=== PATIENT | male | born 1975 | race Caucasian/White ===

== ENCOUNTER 2016-06-15 21:29 | Emergency (ER) | payer MEDICARE, MEDICAID ==
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
[2016-06-16] MEDS ORDERED: IBUPROFEN 600 MG TABLET PO ONE (01:10)
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
[2016-06-16 01:32] VITALS: BP 130/85
== END 2016-06-16 01:28 | disposition home or self-care (01) ==
LOC: ER 21:29
DX: S76.911A Strain of unspecified muscles, fascia and tendons at thigh level, right thigh, initial encounter (principal); M79.651 Pain in right thigh; M79.604 Pain in right leg; F17.200 Nicotine dependence, unspecified, uncomplicated; X58.XXXA Exposure to other specified factors, initial encounter
CPT/HCPCS: 99283; 73562; A9270

== ENCOUNTER 2017-07-29 12:33 | Emergency (ER) | payer MEDICARE, MEDICAID ==
[2017-07-29 12:44] VITALS: BP 135/87
--- NOTE | 2017-07-29 13:15 | ER Document Report ---
ED Extremity Problem, Upper - General Chief Complaint: Shoulder Pain Stated Complaint: LEFT SHOULDER PAIN Time Seen by Provider: 07/29/17 13:04 Mode of Arrival: Ambulatory Information source: Patient TRAVEL OUTSIDE OF THE [place] IN LAST 30 DAYS: No - HPI Patient complains to provider of: Pain Notes: Patient is here with complaints of pain in the left lateral neck, trapezius area. States that the pain started this morning when he was walking to the store and is progressively gotten worse as the day has progressed. He denies any trauma or fall. He denies any numbness, tingling, weakness. States that the pain is worse when he turns his head to the right or left or when he moves his left arm. He denies any chest pain or shortness of breath. No diaphoresis. No nausea, vomiting, diarrhea. No rash. No abdominal pain. No headache or blurred vision. He denies any known cardiac disease. No other complaints at this time. He took some Tylenol arthritis without relief of pain. - Related Data Allergies/Adverse Reactions: aspirin Adverse Reaction (Mild, Verified 07/29/17 13:04) Past Medical History - Social History Smoking Status: Current Every Day Smoker Chew tobacco use (# tins/day): No Frequency of alcohol use: None Drug Abuse: None Family History: Reviewed & Not Pertinent Patient has suicidal ideation: No Patient has homicidal ideation: No - Past Medical History Cardiac Medical History: Reports: Hx Hypercholesterolemia Renal/ Medical History: Denies: Hx Peritoneal Dialysis Psychiatric Medical History: Reports: Hx Bipolar Disorder - Immunizations Hx Diphtheria, Pertussis, Tetanus Vaccination: Yes Review of Systems - Review of Systems -: Yes All other systems reviewed and negative Physical Exam - Vital signs Vitals: Temp Pulse BP Pulse Ox 97.4 F 97 135/87 H 98 07/29/17 12:42 07/29/17 12:42 07/29/17 12:42 07/29/17 12:42 - Notes Notes: GENERAL: alert, cooperative, nontoxic, no distress. HEAD: normocephalic, atraumatic EYES: conjunctiva pink without discharge, no external redness or swelling. EARS: no external swelling, no external redness NOSE: atraumatic, no external swelling MOUTH/THROAT: mucous membranes moist and pink NECK: soft, supple, full range of motion, no meningismus. CHEST: no distress, lungs clear and equal throughout. No wheezing, rales, rhonchi. CARDIAC: regular rate and rhythm, no murmur, normal capillary refill, normal pulses. BACK: full range of motion, no CVA tenderness. EXTREMITIES: full range of motion of all extremities. No redness, no swelling. Mild tenderness and muscle spasm to the left trapezius muscle. Full range of motion and strength of the left upper arm. Normal pulse and sensation distally. NEURO: alert and oriented 3, no focal deficits, full range of motion of all extremities. PYSCH: appropriate mood, affect. Patient is cooperative. SKIN: pink, warm, dry, no rash. Course - Re-evaluation Re-evalutation: 07/29/17 13:12 Patient is nontoxic appearing with stable vitals. Is here with complaints of left posterior shoulder pain that started this morning. Pain is worse with moving his head as well as moving his arm as well as with palpation of the left trapezius where he is noted to have some muscle spasm. Not having any chest pain or shortness of breath associated with this. He has a normal neurovascular exam. There was no trauma or injury, therefore x-rays would be of no significant benefit at this time. This point the patient seems to have some muscle spasm as the source of his pain. At this point he can be discharged home with a prescription for NSAIDs and a muscle relaxer. He is instructed to follow-up with his doctor if not better in the next week, sooner for worsening pain, fever, numbness, tingling, weakness, chest pain or shortness of breath, or for any further concerns. The patient is noted to have elevated blood pressure during today's emergency department visit. The patient was informed of this finding. The patient was instructed that this may be related to pre-hypertension and requires further evaluation with a primary care provider. The patient has no hypertensive symptoms at this time. The patient's emergency department workup and current diagnosis were explained to the patient and or family. Follow-up instructions were provided. Medications if prescribed were discussed. Instructions for when to return to the emergency department including specific worrisome symptoms were discussed with the patient and/or family. - Vital Signs Vital signs: Temp Pulse Resp BP Pulse Ox 97.4 F 97 135/87 H 98 07/29/17 12:42 07/29/17 12:42 07/29/17 12:42 07/29/17 12:42 Discharge - Discharge Clinical Impression: Strain of left trapezius muscle Qualifiers: Encounter type: initial encounter Qualified Code(s): S46.812A - Strain of other muscles, fascia and tendons at shoulder and upper arm level, left arm, initial encounter Condition: Stable Disposition: HOME, SELF-CARE Instructions: Muscle Relaxers ([facility]), Muscle Strain ([facility]) Additional Instructions: Take medications as prescribed. Try to stretch her shoulder and neck. Apply heat to sore area. Follow-up if not better in 1 week, sooner for worsening pain , fever, numbness, tingling, weakness, chest pain, shortness of breath, or for any further concerns. Your blood pressure was elevated during today's visit. Have this rechecked with your doctor. Prescriptions: Naproxen [Naprosyn] 500 mg PO BID #20 tablet Tizanidine HCl [Zanaflex 4 Mg Tablet] 4 mg PO BID PRN #10 tablet PRN Reason: Forms: Elevated Blood Pressure Referrals: [facility] [Provider Group] - Follow up as needed
== END 2017-07-29 13:26 | disposition home or self-care (01) ==
LOC: ER 12:33
DX: S29.012A Strain of muscle and tendon of back wall of thorax, initial encounter (principal); X58.XXXA Exposure to other specified factors, initial encounter; M25.512 Pain in left shoulder; M54.2 Cervicalgia; M62.830 Muscle spasm of back; F17.200 Nicotine dependence, unspecified, uncomplicated; R03.0 Elevated blood-pressure reading, without diagnosis of hypertension
CPT/HCPCS: 99283

== ENCOUNTER 2017-08-26 14:24 | Emergency (ER) | payer MEDICARE, MEDICAID ==
--- NOTE | 2017-08-26 15:37 | ER Document Report ---
ED General - General Chief Complaint: Shoulder Pain Stated Complaint: LEFT SHOULDER PAIN Time Seen by Provider: 08/26/17 15:36 TRAVEL OUTSIDE OF THE [place] IN LAST 30 DAYS: No - HPI Notes: Sharp left shoulder pain 8/10 exacerbated with palpation of his left trapezius. Patient was seen 3 weeks ago for this atraumatic left shoulder pain. States it has not gotten better. Saw his PCP. Had never had imaging performed of his left shoulder. Denies any new trauma. Denies sensory defect or decreased muscle strength. - Related Data Allergies/Adverse Reactions: aspirin Adverse Reaction (Mild, Verified 08/26/17 14:25) Past Medical History - Social History Smoking Status: Current Every Day Smoker Chew tobacco use (# tins/day): No Frequency of alcohol use: None Drug Abuse: None Family History: Reviewed & Not Pertinent Patient has suicidal ideation: No Patient has homicidal ideation: No - Past Medical History Cardiac Medical History: Reports: Hx Hypercholesterolemia Renal/ Medical History: Denies: Hx Peritoneal Dialysis Psychiatric Medical History: Reports: Hx Bipolar Disorder - Immunizations Hx Diphtheria, Pertussis, Tetanus Vaccination: Yes Review of Systems - Review of Systems Notes: REVIEW OF SYSTEMS: CONSTITUTIONAL: -fevers, -chills EENT: -eye pain, -difficulty swallowing, -nasal congestion CARDIOVASCULAR: -chest pain, -syncope. RESPIRATORY: -cough, -SOB GASTROINTESTINAL: -abdominal pain, -nausea, -vomiting, -diarrhea GENITOURINARY: -dysuria, -hematuria MUSCULOSKELETAL: -back pain, neck pain, positive left shoulder pain SKIN: -rash or skin lesions. HEMATOLOGIC: -easy bruising or bleeding. LYMPHATIC: -swollen, enlarged glands. NEUROLOGICAL: -altered mental status or loss of consciousness, -headache, - neurologic symptoms PSYCHIATRIC: -anxiety, -depression. ALL OTHER SYSTEMS REVIEWED AND NEGATIVE. Physical Exam - Vital signs Vitals: Temp Pulse Resp BP Pulse Ox 98 F 114 H 18 151/94 H 95 08/26/17 14:30 08/26/17 14:30 08/26/17 14:30 08/26/17 14:30 08/26/17 14:30 - Notes Notes: PHYSICAL EXAMINATION: GENERAL: Well-appearing, well-nourished and in no acute distress. HEAD: Atraumatic, normocephalic. EYES: Pupils equal round and reactive to light, extraocular movements intact, sclera anicteric, conjunctiva are normal. ENT: nares patent, oropharynx clear without exudates. Moist mucous membranes. NECK: Normal range of motion, supple without lymphadenopathy LUNGS: Breath sounds clear to auscultation bilaterally and equal. No wheezes rales or rhonchi. HEART: Regular rate and rhythm without murmurs ABDOMEN: Soft, nontender, normoactive bowel sounds. No guarding, no rebound. No masses appreciated. EXTREMITIES: Left arm hurts with flexion and extension. Painful left trapezius as well NEUROLOGICAL: Cranial nerves grossly intact. Normal speech, normal gait. Normal sensory and motor exams. PSYCH: Normal mood, normal affect. SKIN: Warm, Dry, normal turgor, no rashes or lesions noted. Course - Re-evaluation Re-evalutation: 08/26/17 16:16 Resident man presents with continued left shoulder pain. Patient's imaging studies unremarkable. Patient given a sling for comfort. Will be given prescription for short course of oral analgesia. Recommend follow-up with orthopedics. - Vital Signs Vital signs: Temp Pulse Resp BP Pulse Ox 98 F 114 H 18 151/94 H 95 08/26/17 14:30 08/26/17 14:30 08/26/17 14:30 08/26/17 14:30 08/26/17 14:30 - Diagnostic Test Radiology results interpreted by me: 08/26/17 16:14 Negative left shoulder no acute process. Discharge - Discharge Clinical Impression: Shoulder pain, left Qualifiers: Chronicity: acute Qualified Code(s): M25.512 - Pain in left shoulder Condition: Stable Disposition: HOME, SELF-CARE Instructions: Shoulder Injury ([facility]) Additional Instructions: see your pcp or orthopedists Prescriptions: Oxycodone HCl/Acetaminophen [Oxycodon-Acetaminophen 2.5-325] 2 each PO Q6H #12 tablet Referrals: TATIANA CHENG MD [ACTIVE STAFF] - Follow up as needed
[2017-08-26] MEDS ORDERED: ACETAMINOPHEN 325 MG TABLET PO ONE (15:38)
[2017-08-26] MEDS ORDERED: KETOROLAC TROMETHAMINE 60 MG/2 ML SDV IM ONE (15:38)
--- NOTE | 2017-08-26 16:05 | RADIOLOGY REPORT (SQ) ---
EXAM DESCRIPTION: SHOULDER LEFT 2 OR MORE VIEWS COMPLETED DATE/TIME: 08/26/2017 3:54 pm REASON FOR STUDY: pain COMPARISON: None. NUMBER OF VIEWS: Three views. TECHNIQUE: Internal rotation, external rotation, and Y view images acquired of the left shoulder. LIMITATIONS: None. FINDINGS: MINERALIZATION: Normal. BONES: No acute fracture or dislocation. No worrisome bone lesions. JOINTS: No dislocation. VISUALIZED LUNGS AND RIBS: No pneumothorax. No rib fracture. SOFT TISSUES: No radiopaque foreign body. OTHER: No other significant finding. IMPRESSION: NEGATIVE STUDY OF THE LEFT SHOULDER. NO RADIOGRAPHIC EVIDENCE OF ACUTE INJURY. TECHNICAL DOCUMENTATION: JOB ID: [id number] [employer]- All Rights Reserved Reading location - IP/workstation name: [email or web address]
[2017-08-26 16:50] VITALS: BP 137/93
== END 2017-08-26 16:50 | disposition home or self-care (01) ==
LOC: ER 14:24
DX: M25.512 Pain in left shoulder (principal); M54.6 Pain in thoracic spine; F17.200 Nicotine dependence, unspecified, uncomplicated
CPT/HCPCS: 99283; 96372; 73030; A9270; J1885

== ENCOUNTER → 2017-10-26 | Outpatient (CLI) | payer MEDICARE, MEDICAID ==
--- NOTE | 2017-10-26 21:16 | RADIOLOGY REPORT (SQ) ---
EXAM DESCRIPTION: MRI LT UPPER JOINT WITHOUT COMPLETED DATE/TIME: 10/26/2017 8:52 am REASON FOR STUDY: PARTIAL THICKNESS ROTATOR CUFF TEAR M75.112 INCOMPLETE ROTATR-CUFF TEAR/RUPTR OF L SHOULDER, NOT COMPARISON: None. TECHNIQUE: Left shoulder images acquired and stored on PACS. Multiplanar imaging to include fat sens itive sequences such as T1, water sensitive sequences such as FST2/STIR, cartilage sensitive sequence s such as FSPD/gradient-echo sequences. LIMITATIONS: Motion artifact on some pulse sequences FINDINGS: BONE MARROW AND CORTEX: No worrisome bone lesions or marrow replacement. No occult fractur es. JOINT OR BURSAL EFFUSION: No significant joint or bursal fluid. No suggestion of loose bodies. GLENO-HUMERAL ARTICULATION: Normal articulation. No subluxation. No cystic change. No osteophytes or cartilage loss. ACROMION AND AC JOINT: Type 1 acromion. Very mild acromioclavicular joint hypertrophy without narrow ing of the subacromial space. No significant fluid in the subacromial/subdeltoid bursa. ROTATOR CUFF AND INTERVAL: No significant tear or signal alteration. No cuff muscle atrophy. No rotator interval tear. No rotator interval thickening to suggest adhesive capsulitis. LABRUM AND BICEPS LABRAL COMPLEX: Intra-articular long head biceps tendon is intact. However there is a small superior labral tear at its insertion on the superior glenoid labrum extending anteriorly , best shown on axial gradient echo image 8 and 9. No paralabral cyst. REMAINDER OF LABRUM AND IGHL : No gross tear or paralabral cyst formation. Labral evaluation is less than optimal without joint distention. No thickening of IGHL to suggest adhesive capsulitis. PERIARTICULAR AND ADJACENT SOFT TISSUES: No masses or abnormal nodes. OTHER: No other significant finding. IMPRESSION: Small superior labral tear at the long head biceps tendon attachment TECHNICAL DOCUMENTATION: JOB ID: [id number] [employer]- All Rights Reserved Reading location - IP/workstation name: [email or web address]
== END ==
LOC: RAD 07:54
PROVIDERS: ATTEND Orthopaedic Surgery
DX: M75.112 Incomplete rotator cuff tear or rupture of left shoulder, not specified as traumatic (principal)

== ENCOUNTER 2017-12-19 07:03 | Day surgery (SDC) | payer MEDICARE, MEDICAID ==
[2017-12-17 09:57] LABS: HEMOGLOBIN 16.1 g/dL (13.5-17.0); MEAN CORPUSCULAR HEMOGLOBIN 32.2 pg (27.0-33.4); MEAN CORPUSCULAR HGB CONC 35.1 g/dL (32.0-36.0); MEAN CORPUSCULAR VOLUME 92 fl (80-97); PLATELET COUNT 324 10^3/uL (150-450); RED BLOOD COUNT 5.02 10^6/uL (4.35-5.55); RED CELL DISTRIBUTION WIDTH 14.3 % (11.5-14.0); WHITE BLOOD COUNT 8.5 10^3/uL (4.0-10.5)
[2017-12-17 10:11] LABS: APPEARANCE,URINE CLEAR; BILIRUBIN,URINE NEGATIVE (NEGATIVE); COLOR,URINE YELLOW; GLUCOSE, URINE NEGATIVE (NEGATIVE); KETONES,URINE NEGATIVE (NEGATIVE); LEUKOCYTE ESTERASE,URINE NEGATIVE (NEGATIVE); NITRITE,URINE NEGATIVE (NEGATIVE); PROTEIN,URINE NEGATIVE (NEGATIVE); URINE SPECIFIC GRAVITY 1.009; UROBILINOGEN,URINE NEGATIVE mg/dL (<2.0)
[2017-12-17 10:19] LABS: ANION GAP 8 (5-19); BLOOD UREA NITROGEN 7 mg/dL (7-20); CALCIUM 9.6 mg/dL (8.4-10.2); CARBON DIOXIDE 27 mmol/L (22-30); CHLORIDE 106 mmol/L (98-107); GLUCOSE 92 mg/dL (75-110); SODIUM 140.9 mmol/L (137-145)
--- NOTE | 2017-12-17 10:41 | RADIOLOGY REPORT (SQ) ---
EXAM DESCRIPTION: CHEST PA/LATERAL COMPLETED DATE/TIME: 12/17/2017 10:08 am REASON FOR STUDY: PRE-OP COMPARISON: None. EXAM PARAMETERS: NUMBER OF VIEWS: two views TECHNIQUE: Digital Frontal and Lateral radiographic views of the chest acquired. RADIATION DOSE: NA LIMITATIONS: none FINDINGS: LUNGS AND PLEURA: No opacities, masses or pneumothorax. No pleural effusion. MEDIASTINUM AND HILAR STRUCTURES: No masses or contour abnormalities. HEART AND VASCULAR STRUCTURES: Heart normal size. No evidence for failure. BONES: No acute findings. HARDWARE: None in the chest. OTHER: No other significant finding. IMPRESSION: 1. NO SIGNIFICANT RADIOGRAPHIC FINDING IN THE CHEST. TECHNICAL DOCUMENTATION: JOB ID: [id number] [employer]- All Rights Reserved Reading location - IP/workstation name: [email or web address]
--- NOTE | 2017-12-17 16:57 | EKG REPORT ---
SEVERITY:- NORMAL ECG - SINUS RHYTHM : Confirmed by: Vicky Hernandez MD 17-Dec-2017 16:56:31
[~2017-12-19 07:03] MED LIST: CEFAZOLIN 2 GM/D5W RTU 2 GM/50 ML RTUPB IV SCH; CEFAZOLIN SODIUM 2 GM in DEXTROSE 5%-WATER 100 ML IV SCH
[2017-12-19] MEDS ORDERED: FENTANYL CITRATE INJ/PF 250 MCG/5 ML AMPULE ONE (07:10)
[2017-12-19] MEDS ORDERED: MIDAZOLAM 2 MG/2 ML INJ ONE (07:11)
[2017-12-19] MEDS ORDERED: PROPOFOL INJ 200 MG/20 ML VIAL IV ONE (07:11)
[2017-12-19] MEDS ORDERED: BUPIVACAINE HCL 0.5 % INJ/PF 30 ML SDV ONE (07:23)
[2017-12-19] MEDS ORDERED: EPINEPHRINE INJ/PF 1 MG/1 ML AMPULE ONE (07:23)
[2017-12-19] MEDS ORDERED: CEFAZOLIN 2 GM/D5W RTU 2 GM/50 ML RTUPB IV ONE (08:38)
[2017-12-19] MEDS ORDERED: HYDROMORPHONE HCL INJ/PF 2 MG/ML AMPULE ONE (08:44)
[2017-12-19] MEDS ORDERED: DIPHENHYDRAMINE HCL 50 MG/ML VIAL IV PRN (10:01)
[2017-12-19] MEDS ORDERED: FENTANYL CITRATE INJ/PF 100 MCG/2 ML AMPUL IV PRN ×3 (10:01)
[2017-12-19] MEDS ORDERED: MEPERIDINE HCL/PF INJ 25 MG/1 ML DISP.SYRIN IV PRN (10:01)
[2017-12-19] MEDS ORDERED: OXYCODONE-ACETAMINOPHEN 5-325 MG TABLET PO PRN ×4 (10:01→11:01)
[2017-12-19] MEDS ORDERED: PROMETHAZINE HCL INJ 25 MG/1 ML VIAL IV PRN ×2 (10:01)
[2017-12-19] MEDS ORDERED: MORPHINE SULFATE 10 MG/ML INJ IV PRN (10:01)
--- NOTE | 2017-12-19 10:54 | Operative Report ---
Operative Report DATE OF SURGERY: 12/19/17 PREOPERATIVE DIAGNOSIS: Left shoulder SLAP tear and impingement syndrome POSTOPERATIVE DIAGNOSIS: Same OPERATION: Left shoulder arthroscopic debridement with acromioplasty and subpectoralis biceps tenodesis SURGEON: FREDO BEGUM ANESTHESIA: GA TISSUE REMOVED OR ALTERED: Portion of the long head of the biceps COMPLICATIONS: None ESTIMATED BLOOD LOSS: Less than 20 mL INTRAOPERATIVE FINDINGS: As above PROCEDURE: Patient received 1 g of IV Ancef. Patient then was taken to the operating room where she was induced and intubated in supine position. Patient then was secured in the beachchair position where the left shoulder was prepped and draped in a normal surgical fashion. Was done identifying the left shoulder as the correct site. Spinal needle was used to insert into the glenohumeral joint and I proceeded to distend the capsule with sterile saline solution. 11 blade was used to establish my posterior portal and I introduced the cannula into the glenohumeral joint. Once I got return of fluid I confirm proper placement and placed a camera. Under direct visualization I placed a spinal needle marked my anterior portal and used an 11 blade to establish a. I placed a purple cannula and then through the cannula was able to probe and proceed with my diagnostic scope which show pristine glenohumeral joint cartilage and intact inferior and posterior labrum. As suspected patient had a small SLAP tear but I also noticed patient has some tearing and fraying of the anterior labrum. To my attention to the footprint of the rotator cuff which showed to be intact with no partial tearing. At this point through the anterior portal I use arthroscopic scissors to do a tenotomy of the long head of the biceps at the attachment of the glenoid superiorly. I also used a shaver to do debridement of the anterior labrum. Radio frequency ablator was used and to mold and trim the edges of the superior and anterior labrum. At this point I redirected the scope to the subacromial space and establish a lateral portal. Through this lateral portal I was able then to do a formal bursectomy and visualized at the rotator cuff was intact on the bursal side as well. I then delineated the acromion and show the type II hook. I used a 5.5 mm bur to then do a acromioplasty of the anterior lateral portion of the acromion. Also satisfied with my acromioplasty and decompression I turned my attention to the subpectoralis biceps tenodesis portion of the case I proceeded then to remove fluid from the shoulder joint and removed the instruments. A 1 inch incision was done just medial to the axillary fold dissection was done with Metzenbaum scissors and hemostasis was obtained with the Bovie. Able to then cut the fascia overlying the biceps and then hooked the long head of biceps with a 90 clamp. Was able then to use a fiber loop and suture 2 cm from the muscular tendinous junction and cut the remaining tendon. I used 2 Homans to reflect tissue on the side of the humerus. I used a 4 mm spade tip guidepin then to do my proximal cortex drilling into the intramedullary canal of the humerus. I fed the 2 ends of the fiber wire into the biceps tenodesis button as recommended by the manufacturing company. Pulled out the guidepin and then proceeded to insert the button into the intramedullary canal. I was able to successfully flipped the button and after releasing securing the biceps. I used a free needle the comes in the care and pass one of the FiberWire ends through the biceps one more time to further secure it. Once I since the biceps onto the humeral cortex I then proceeded to go several half hitch knots for added fixation. Instruments were removed and used bulb irrigation to wash the tissue. I proceeded to approximate the tissue with 2-0 Vicryl and close the skin with 3-0 nylon. The 2 of the portal sites were closed with 3-0 nylon as well. I placed Xeroform over the incisions and covered it with 4 x 4 dressing and ABD pads. Secured the dressing with Medipore tape. Patient's arm was placed in the sling and the patient then was placed in supine position extubated and sent to PACU in stable condition.
--- NOTE | 2017-12-19 11:02 | Discharge Summary ---
Discharge Summary (SDC) - Discharge Final Diagnosis: Left shoulder arthroscopic debridement with acromioplasty and subpectoralis biceps tenodesis Date of Surgery: 12/19/17 Discharge Date: 12/19/17 Condition: Good Treatment or Instructions: Patient is instructed to follow up in 10-14 days. Patient instructed to remove dressing in 4 days then can shower and apply Band- Aids as needed. Patient to wear sling for comfort but okay to remove for shower and pendulum exercises. Pendulum exercises are instructed to be done 3 times a day ideally with breakfast, lunch, dinners and showers. Patient instructed to call if there is any signs of redness or drainage fevers or chills. Prescriptions: Oxycodone HCl/Acetaminophen [Percocet 5-325 mg Tablet] 1 - 2 tab PO ASDIR PRN # 60 tablet PRN Reason: Referrals: SIMONE BUSH MD [Primary Care Provider] - Respiratory Treatments at Home: Deep Breathing/Coughing Discharge Activity: No Driving, No Lifting/Push/Pulling, Slowly Increase Activity, Walk Frequently Home Care Assistance: None Needed Report the Following to Your Physician Immediately: Shortness of Breath, Vomiting, Increase in Pain, Fever over 101 Degrees, Unusual Bleeding, Redness, Swelling, Warmth, Drainage-Yellow, Drainage-Mojica, Drainage-Green, Drainage-Foul Smelling
[2017-12-19] MEDS: FENTANYL CITRATE INJ/PF 100 MCG/2 ML AMPUL ONE ×2 (11:15→11:20)
[2017-12-19] MEDS ORDERED: OXYCODONE-ACETAMINOPHEN 5-325 MG TABLET ONE (12:10)
[2017-12-19] MEDS ORDERED: SUCCINYLCHOLINE CHLORIDE INJ 200 MG/10 ML VIAL ONE (14:48)
[2017-12-19] MEDS ORDERED: KETOROLAC TROMETHAMINE 60 MG/2 ML SDV ONE (14:48)
[2017-12-19] MEDS ORDERED: ONDANSETRON HCL INJ/PF 4 MG/2 ML SDV ONE (14:48)
[2017-12-19] MEDS ORDERED: DEXAMETHASONE SOD PHOSPHATE INJ 4 MG/1 ML VIAL ONE (14:48)
[2017-12-19 15:16] VITALS: BP 123/83
== END 2017-12-19 13:10 | disposition home or self-care (01) ==
LOC: OROUT 07:03
PROVIDERS: ATTEND Orthopaedic Surgery
DX: S43.432A Superior glenoid labrum lesion of left shoulder, initial encounter (principal); X58.XXXA Exposure to other specified factors, initial encounter; M75.42 Impingement syndrome of left shoulder; M25.512 Pain in left shoulder; K21.9 Gastro-esophageal reflux disease without esophagitis; Z79.899 Other long term (current) drug therapy; Z01.818 Encounter for other preprocedural examination
CPT/HCPCS: 93010; 93005; 36415; 85027; 80048; 81001; 71046; 24340; 29822; C1713; J2250; J3490; J1100; J0171; J1885; J3010; A9270; J1170; J0330; J2405; J2704; J0690; 1630

== ENCOUNTER 2018-06-28 18:45 | Emergency (ER) | payer MEDICARE, MEDICAID ==
[2018-06-28] MEDS ORDERED: IBUPROFEN 800 MG TABLET PO ONE (19:20)
[2018-06-28] MEDS ORDERED: ONDANSETRON 4 MG TAB.RAPDIS PO ONE (19:20)
--- NOTE | 2018-06-28 19:23 | ER Document Report ---
ED Medical Screen (RME) - General Chief Complaint: Flu Symptoms Stated Complaint: ABDOMINAL PAIN,NAUSEA Time Seen by Provider: 06/28/18 19:20 Primary Care Provider: SIMONE BUSH MD [Primary Care Provider] - Follow up as needed TRAVEL OUTSIDE OF THE [place] IN LAST 30 DAYS: No - HPI Notes: 06/28/18 19:21 Patient is a 42-year-old male with no significant past medical history who presents emergency department complaining of nasal congestion/discharge, fever, body ache, dry cough that began today. He has not taken any medicines for symptoms. He has had 2 episodes of nausea and vomiting with the last prior to arrival. He is otherwise urinating normally and having normal bowel movements. Denies LOUIS, neck pain, CP, SOB, Abd pain, or rash. No flu shot this year. I have treated and performed a rapid initial assessment of this patient. A comprehensive ED assessment and evaluation of the patient, analysis of test results and completion of medical decision making process will be conducted by additional ED providers. PHYSICAL EXAMINATION: GENERAL: Well-appearing, well-nourished and in no acute distress. A&Ox4. Answers questions appropriately. LUNGS: Breath sounds clear to auscultation bilaterally and equal. No wheezes rales or rhonchi. HEART: Regular rate and rhythm without murmurs, rubs, gallops. ABDOMEN: Soft, nondistended abdomen. No guarding, no rebound. Normal bowel sounds present. No CVA tenderness bilaterally. Nontender Extremities: No cyanosis, clubbing, or edema b/l. NEUROLOGICAL: Normal speech, normal gait. PSYCH: Normal mood, normal affect. - Related Data Allergies/Adverse Reactions: aspirin Adverse Reaction (Mild, Verified 06/28/18 18:45) Past Medical History - Social History Chew tobacco use (# tins/day): No Frequency of alcohol use: None Drug Abuse: None - Past Medical History Cardiac Medical History: Reports: Hx Hypercholesterolemia Denies: Hx Coronary Artery Disease, Hx Heart Attack, Hx Hypertension Pulmonary Medical History: Denies: Hx Asthma, Hx Bronchitis, Hx COPD, Hx Pneumonia Neurological Medical History: Denies: Hx Cerebrovascular Accident, Hx Seizures Renal/ Medical History: Denies: Hx Peritoneal Dialysis Musculoskeltal Medical History: Reports Hx Arthritis - RIGHT KNEE Psychiatric Medical History: Reports: Hx Bipolar Disorder - Immunizations Hx Diphtheria, Pertussis, Tetanus Vaccination: Yes History of Influenza Vaccine for 12/2016 - 05/2017 Season: Refused Doctor's Discharge - Discharge Referrals: SIMONE BUSH MD [Primary Care Provider] - Follow up as needed
[2018-06-28 19:43] LABS: A TYPE INFLUENZA AG NEGATIVE (NEGATIVE); B INFLUENZA AG NEGATIVE (NEGATIVE)
--- NOTE | 2018-06-28 20:49 | ER Document Report ---
Addendum entered and electronically signed by EUGENIE WARNER PA-C 06/28/18 22:36: Discharge - Discharge Clinical Impression: Viral syndrome, Elevated blood pressure reading, Tachycardia determined by examination of pulse Condition: Good Disposition: HOME, SELF-CARE Instructions: Acetaminophen, Fever ([facility]), Viral Syndrome ([facility]), Sinus Tachycardia ([facility]) Additional Instructions: Use medications as needed. Get plenty of rest. If your symptoms get worse please see your doctor or come back to the ED. Prescriptions: Codeine Phosphate/Guaifenesin [Cheratussin Ac Syrup] 5 ml PO Q6HP PRN #120 ml PRN Reason: Ondansetron [Zofran Odt 4 mg Tablet] 1 - 2 tab PO Q4H PRN #15 tab.rapdis PRN Reason: For Nausea/Vomiting Referrals: SIMONE BUSH MD [Primary Care Provider] - Follow up as needed Print Language: Mozambican Addendum entered and electronically signed by EUGENIE WARNER PA-C 06/28/18 22:16: Discharge - Discharge Clinical Impression: Viral syndrome, Elevated blood pressure reading, Tachycardia determined by examination of pulse Condition: Good Disposition: HOME, SELF-CARE Instructions: Acetaminophen, Fever ([facility]), Viral Syndrome ([facility]) Additional Instructions: Use medications as needed. Get plenty of rest. If your symptoms get worse please see your doctor or come back to the ED. Prescriptions: Codeine Phosphate/Guaifenesin [Cheratussin Ac Syrup] 5 ml PO Q6HP PRN #120 ml PRN Reason: Ondansetron [Zofran Odt 4 mg Tablet] 1 - 2 tab PO Q4H PRN #15 tab.rapdis PRN Reason: For Nausea/Vomiting Referrals: SIMONE BUSH MD [Primary Care Provider] - Follow up as needed Print Language: Mozambican Addendum entered and electronically signed by EUGENIE WARNER PA-C 06/28/18 22:16: Course - Re-evaluation Re-evalutation: 06/28/18 22:15 Patient was not originally discharged and had a heart rate in the 140 range. We had him rest for several minutes and drink some fluids and his last heart rate was 117. I encouraged him to stick around and drinks more fluids and see if we can get it to come down to closer to a normal range. He wants to go home and does not want to wait around any longer. Advised him to come back for recheck if it does not seem to improve. - Vital Signs Vital signs: Temp Pulse Resp BP Pulse Ox 98.0 F 82 18 162/58 H 100 06/28/18 21:04 06/28/18 21:04 06/28/18 21:04 06/28/18 21:04 06/28/18 21:04 Addendum entered and electronically signed by EUGENIE WARNER PA-C 06/28/18 21:09: Discharge - Discharge Clinical Impression: Viral syndrome, Elevated blood pressure reading Condition: Good Disposition: HOME, SELF-CARE Instructions: Acetaminophen, Fever ([facility]), Viral Syndrome ([facility]) Additional Instructions: Use medications as needed. Get plenty of rest. If your symptoms get worse please see your doctor or come back to the ED. Prescriptions: Codeine Phosphate/Guaifenesin [Cheratussin Ac Syrup] 5 ml PO Q6HP PRN #120 ml PRN Reason: Ondansetron [Zofran Odt 4 mg Tablet] 1 - 2 tab PO Q4H PRN #15 tab.rapdis PRN Reason: For Nausea/Vomiting Referrals: SIMONE BUSH MD [Primary Care Provider] - Follow up as needed Print Language: Mozambican Original Note: ED General - General Chief Complaint: Flu Symptoms Stated Complaint: ABDOMINAL PAIN,NAUSEA Time Seen by Provider: 06/28/18 19:20 Primary Care Provider: SIMONE BUSH MD [Primary Care Provider] - Follow up as needed Mode of Arrival: Ambulatory Information source: Patient TRAVEL OUTSIDE OF THE [place] IN LAST 30 DAYS: No - HPI Patient complains to provider of: Flulike illness Onset: Yesterday Onset/Duration: Sudden Quality of pain: Achy Severity: Severe Pain Level: 5 Associated symptoms: Body/muscle aches, Nonproductive cough, Fever, Nausea, Vomiting. denies: Diarrhea Relieved by: Denies Similar symptoms previously: No Recently seen / treated by doctor: No Notes: 42-year-old male coming in today with 1 day of fever, muscle aches and myalgias and malaise with a dry cough. Some nausea and one episode of emesis. Thinks he has the flu. - Related Data Allergies/Adverse Reactions: aspirin Adverse Reaction (Mild, Verified 06/28/18 18:45) Past Medical History - General Information source: Patient - Social History Smoking Status: Current Every Day Smoker Chew tobacco use (# tins/day): No Frequency of alcohol use: None Drug Abuse: None Family History: Reviewed & Not Pertinent Patient has suicidal ideation: No Patient has homicidal ideation: No - Past Medical History Cardiac Medical History: Reports: Hx Hypercholesterolemia Denies: Hx Coronary Artery Disease, Hx Heart Attack, Hx Hypertension Pulmonary Medical History: Denies: Hx Asthma, Hx Bronchitis, Hx COPD, Hx Pneumonia Neurological Medical History: Denies: Hx Cerebrovascular Accident, Hx Seizures Renal/ Medical History: Denies: Hx Peritoneal Dialysis Musculoskeletal Medical History: Reports Hx Arthritis - RIGHT KNEE Psychiatric Medical History: Reports: Hx Bipolar Disorder - Immunizations Hx Diphtheria, Pertussis, Tetanus Vaccination: Yes Hx Pneumococcal Vaccination: 12/23/10 Review of Systems - Review of Systems Notes: Constitutional: Positive for fevers, chills, myalgias, and malaise EENT: No eye redness. No eye pain. No ear pain. No sore throat. Cardiovascular: No chest pain. No palpitations. Respiratory: Positive nonproductive cough Gastrointestinal: No abdominal pain. Positive for nausea and vomiting Genitourinary: Atraumatic. No lesions. No pain. No discharge. Musculoskeletal: Atraumatic. No swelling. No deformities. Skin: No rash or lesions. Lymphatic: No swollen lymph nodes. Neurologic: No headache. No syncope. Psychiatric: No suicidal or homicidal ideation. Physical Exam - Vital signs Vitals: Temp Pulse Resp BP Pulse Ox 98.0 F 82 18 162/58 H 100 06/28/18 21:04 06/28/18 21:04 06/28/18 21:04 06/28/18 21:04 06/28/18 21:04 - Notes Notes: General: Well-developed, well-nourished. In no acute distress. Non-toxic appearing. Cardiac: Well-perfused. Regular rate and rhythm. No murmurs, rubs, or gallops. Pulmonary: No respiratory distress. No cyanosis. Bilateral lung fiels are clear to auscultation. Abdominal: Non-distended. Non-rigid. Bowels sounds are present in all four quadrants. No guarding or rebound. HEENT: Head is atraumatic. Conjunctivae not reddened. No tearing. PERRL. EOMI. Orbits atraumatic. No periorbital swelling or erythema. Oropharynx is without erythema, swelling, or exudates. Neck: Supple. No adenopathy. No meningismus. Dermatologic: Warm with good turgor. No rash. Atraumatic. Chest: Atraumatic. No chest wall tenderness to palpation. Musculoskeletal: Moves all extremities well. No range of motion deficits. no muscular or joint tenderness. No paraspinal muscle tenderness. no midline spinal tenderness or step-off. Genitourinary: Examination deferred Neurologic: No gross neurologic deficits. Psychiatric: Normal mood. Course - Re-evaluation Re-evalutation: 06/28/18 21:06 Flu negative. Chest x-ray negative. Will give patient cough medicine as well as nausea medicine and discharge. - Vital Signs Vital signs: Temp Pulse Resp BP Pulse Ox 98.0 F 82 18 162/58 H 100 06/28/18 21:04 06/28/18 21:04 06/28/18 21:04 06/28/18 21:04 06/28/18 21:04 Discharge - Discharge Clinical Impression: Viral syndrome, Elevated blood pressure reading Condition: Good Disposition: HOME, SELF-CARE Instructions: Acetaminophen, Fever ([facility]), Viral Syndrome ([facility]) Additional Instructions: Use medications as needed. Get plenty of rest. If your symptoms get worse please see your doctor or come back to the ED. Prescriptions: Codeine Phosphate/Guaifenesin [Cheratussin Ac Syrup] 5 ml PO Q6HP PRN #120 ml PRN Reason: Ondansetron [Zofran Odt 4 mg Tablet] 1 - 2 tab PO Q4H PRN #15 tab.rapdis PRN Reason: For Nausea/Vomiting Referrals: SIMONE BUSH MD [Primary Care Provider] - Follow up as needed Print Language: Mozambican
--- NOTE | 2018-06-28 21:06 | RADIOLOGY REPORT (SQ) ---
EXAM DESCRIPTION: [facility]: XR CHEST 2 VIEWS Views: 2 CLINICAL HISTORY: 42 years Male, cough COMPARISON: 12/17/2017 FINDINGS: The lungs are clear. No pneumothorax or significant pleural effusion. Cardiomediastinal silhouette is within normal limits. Bony structures are unremarkable for age. IMPRESSION: 1. No acute cardiothoracic abnormality.
[2018-06-28 22:19] VITALS: BP 130/71
== END 2018-06-28 22:38 | disposition home or self-care (01) ==
LOC: ER 18:45
DX: B34.9 Viral infection, unspecified (principal); R03.0 Elevated blood-pressure reading, without diagnosis of hypertension; R00.0 Tachycardia, unspecified; R10.9 Unspecified abdominal pain; M79.10 Myalgia, unspecified site; R11.2 Nausea with vomiting, unspecified; F17.200 Nicotine dependence, unspecified, uncomplicated; E78.00 Pure hypercholesterolemia, unspecified
CPT/HCPCS: 99283; 87804; 71046; A9270 ×2; S0119

== ENCOUNTER → 2018-09-05 | Day surgery (SDC) | payer MEDICARE, MEDICAID ==
--- NOTE | 2018-09-05 12:07 | RADIOLOGY REPORT (SQ) ---
EXAM DESCRIPTION: ARTHRO SHOULDER INJECTION; FLUORO/NEEDLE PLACEMENT COMPLETED DATE/TIME: 09/05/2018 10:14 am REASON FOR STUDY: PAIN IN LEFT SHOULDER (M25.512) M25.512 PAIN IN LEFT SHOULDER COMPARISON: None. FLUOROSCOPY TIME: 0.16 minutes 1 images saved to PACS. LIMITATIONS: None. PROCEDURE: Procedure, risks, benefits and alternatives explained to patient who then gave written co nsent. The left shoulder was marked and a time out was called for correct procedure verification. Po sterior entry site marked using fluoroscopic guidance. Shoulder prepped and draped using sterile gilma hnique. Local anesthesia achieved using 1% lidocaine injection. Hypodermic needle introduced into t he joint space under direct fluoroscopic visualization. Non-ionic contrast instilled to confirm intra -articular position. Dilute gadolinium solution then injected. Needle removed and entry site covered with sterile bandage. No immediate complications noted. TECHNIQUE: Digital images acquired during fluoroscopy and stored on PACS. Patient immediately take n to the MR suite for additional imaging. INJECTION LOCATION: Posterior left shoulder. CONTRAST TYPE AND AMOUNT: 1 mL Dotarem/Saline mixture.. IMPRESSION: SUCCESSFUL NEEDLE PLACEMENT AND INJECTION FOR LEFT SHOULDER MR ARTHROGRAM USING POSTERIO R APPROACH. COMMENT: Quality ID [id number]: Final reports for procedures using fluoroscopy that document radiation exp osure indices, or exposure time and number of fluorographic images (if radiation exposure indices are not available) TECHNICAL DOCUMENTATION: JOB ID: [id number] [employer]- All Rights Reserved Reading location - IP/workstation name: [email or web address]
--- NOTE | 2018-09-05 12:28 | RADIOLOGY REPORT (SQ) ---
EXAM DESCRIPTION: MRI LT UPPER JOINT WITH COMPLETED DATE/TIME: 09/05/2018 10:39 am REASON FOR STUDY: PAIN IN LEFT SHOULDER (M25.512) M25.512 PAIN IN LEFT SHOULDER COMPARISON: None. TECHNIQUE: Left shoulder images acquired and stored on PACS. Oblique coronal, oblique sagittal, and axial imaging to include fat sensitive sequences as T1, water sensitive sequences as FST2/STIR, and c ontrast sensitive sequences as FST1. LIMITATIONS: None. FINDINGS: JOINT DISTENTION: Adequate distention for interpretation. No intra-articular loose bodies are present. BONE MARROW AND CORTEX: Normal. No significant osteophytes. No edema or defects. AC JOINT: Type 1 acromion.. Very mild AC joint hypertrophy on sagittal image 12 with minimal narrowin g of the subacromial space. No edema in the distal clavicle or acromion. No fluid in the AC joint GLENOHUMERAL JOINT: No subluxation or dislocation. No focal chondral defects or reactive bone changes . ROTATOR CUFF: Intact without significant tendinopathy, partial or full-thickness tears. No peritendin itis. LABRUM AND BICEPS LABRAL COMPLEX: Tack for the long head biceps tendon along humeral diaphysis is see n at the bottom edge of the field of view. Proximal biceps tendon has been resected. Superior labru m is small but intact on sagittal image 13 and axial images 5 through 8. No paralabral cysts. Short head biceps tendon proximal attachment intact on sagittal image 12 and coronal image 1 through 4. INFERIOR LABRAL COMPLEX: Bony glenoid and labrum intact. IGHL intact without thickening or tear. No p aralabral cysts. ADJACENT SOFT TISSUES: No masses or nodes. OTHER: No other significant finding. IMPRESSION: Post long-head biceps tenodesis. Otherwise unremarkable shoulder MR arthrogram. TECHNICAL DOCUMENTATION: JOB ID: [id number] [employer]- All Rights Reserved Reading location - IP/workstation name: [email or web address]
== END ==
LOC: RAD 09:16
PROVIDERS: ATTEND Orthopaedic Surgery
DX: M25.512 Pain in left shoulder (principal)
CPT/HCPCS: 23350; 77002

== ENCOUNTER 2018-09-11 15:57 | Emergency (ER) | payer MEDICARE, MEDICAID ==
[2018-09-11 16:12] VITALS: BP 129/73
== END 2018-09-11 16:54 | disposition left against medical advice (07) ==
LOC: ER 15:57
DX: Z53.21 Procedure and treatment not carried out due to patient leaving prior to being seen by health care provider (principal)

== ENCOUNTER 2019-03-09 21:12 | Emergency (ER) | payer MEDICARE, MEDICAID ==
[2019-03-09 22:04] VITALS: BP 151/91
== END 2019-03-10 00:15 | disposition left against medical advice (07) ==
LOC: ER 21:12
DX: Z53.21 Procedure and treatment not carried out due to patient leaving prior to being seen by health care provider (principal)

== ENCOUNTER 2019-03-26 11:18 | Emergency (ER) | payer MEDICARE, MEDICAID ==
[2019-03-26 11:42] VITALS: BP 147/84
--- NOTE | 2019-03-26 12:06 | ER Document Report ---
HPI - HPI Time Seen by Provider: 03/26/19 12:01 Notes: Patient is a 43-year-old male no significant past medical history aside from mental health issues who presents complaining of semi-productive cough that began yesterday with some nasal congestion and discharge. He is able to eat and drink without difficulty. He is urinating normally and having normal bowel movements. No other concerns or complaints. Patient is a smoker. Denies any headache, fever, neck pain, sore throat, chest pain, palpitations, syncope, shortness of breath, wheeze, dyspnea, abdominal pain, nausea/vomiting/diarrhea, urinary retention, dysuria, hematuria, or rash. - ROS Systems Reviewed and Negative: Yes All other systems reviewed and negative - REPRODUCTIVE Reproductive: DENIES: : Past Medical History - Social History Smoking Status: Current Every Day Smoker Family History: Reviewed & Not Pertinent - Past Medical History Cardiac Medical History: Reports: Hx Hypercholesterolemia Denies: Hx Coronary Artery Disease, Hx Heart Attack, Hx Hypertension Pulmonary Medical History: Denies: Hx Asthma, Hx Bronchitis, Hx COPD, Hx Pneumonia Neurological Medical History: Denies: Hx Cerebrovascular Accident, Hx Seizures Renal/ Medical History: Denies: Hx Peritoneal Dialysis Musculoskeletal Medical History: Reports Hx Arthritis - RIGHT KNEE Psychiatric Medical History: Reports: Hx Bipolar Disorder - Immunizations Hx Diphtheria, Pertussis, Tetanus Vaccination: Yes Hx Pneumococcal Vaccination: 12/23/10 Vertical Provider Document - CONSTITUTIONAL Agree With Documented VS: Yes Notes: PHYSICAL EXAMINATION: GENERAL: Well-appearing, well-nourished and in no acute distress. A&Ox4. Answers questions appropriately. Moves comfortably w/o notable distress HEAD: Atraumatic, normocephalic. EYES: Pupils equal round and reactive to light, extraocular movements intact, sclera anicteric, conjunctiva are normal. ENT: Nares patent and with clear discharge. oropharynx no erythema without exudates. No tonsilar hypertrophy without erythema or exudate. No palatine shift. Uvula midline. No tongue protrusion. No drooling, hoarseness, or airway compromise. Moist mucous membranes. No sinus tenderness. NECK: Normal range of motion, supple without lymphadenopathy. No rigidity/meningismus. LUNGS: Breath sounds clear to auscultation bilaterally and equal. No wheezes rales or rhonchi. No retractions HEART: Regular rate and rhythm without murmurs, rubs, gallops. ABDOMEN: Soft, nontender, nondistended abdomen. No guarding, no rebound. Normal bowel sounds present. No CVA tenderness bilaterally. NEUROLOGICAL: Normal speech, normal gait. PSYCH: Normal mood, normal affect. SKIN: Warm, Dry, normal turgor, no rashes or lesions noted. - INFECTION CONTROL TRAVEL OUTSIDE OF THE [place] IN LAST 30 DAYS: No Course - Re-evaluation Re-evalutation: 03/26/19 13:08 Patient is causing a little havoc in the waiting room and security had to be called he was patient wants to leave. He did call for his right already. Patient is an afebrile, well-hydrated, 43-year-old male who presents with an a cute URI, suspect viral. Vitals acceptable without significant tachycardia, tachypnea, or hypoxia. PE is otherwise unremarkable. Patient's lungs are grossly clear to auscultation. See chest x-ray. It did mention a questionable nodule. I did review this with the patient and that this could be a cancerous finding and he needs to have close follow-up with his family doctor for further evaluation and possible CT scan. He is otherwise nontoxic appearing and is able to tolerate p.o. without difficulty. No further labs or imaging warranted at this time. Low suspicion for any meningitis, sepsis, peritonsillar/pharyngeal abscess, respiratory compromise, Misbah's, pneumonia, or other emergent systemic condition at this time. Patient is aware this condition can change from initial presentation and he needs to monitor symptoms closely. Conservative measures otherwise for symptoms. Recheck with your PCM in 2-3 days. Return to the ED with any worsening/concerning symptoms otherwise as reviewed in discharge. Patient is in agreement. - Vital Signs Vital signs: Temp Pulse Resp BP Pulse Ox 98.0 F 107 H 16 147/84 H 95 03/26/19 11:40 03/26/19 11:40 03/26/19 11:40 03/26/19 11:40 03/26/19 11:40 Discharge - Discharge Clinical Impression: Acute URI Condition: Stable Disposition: HOME, SELF-CARE Instructions: Upper Respiratory Illness ([facility]) Additional Instructions: As reviewed, you were found to have a questionable pulmonary nodule. This can be a benign thing, but can represent a cancerous finding and needs to be further evaluated with your family doctor. It is important that you follow-up. Maintain adequate fluid intake tylenol/ibuprofen as needed alternating every 3 hours for fever/body ache over the counter cold medication as needed for symptoms Humidified air may help Wash your hands regularly Wear a mask when coughing F/u: with your PCM in 2-3 days for a recheck Return to the ED with any fever, altered mental status/behavior, chest pain, palpitations, syncope, headache, neck pain/stiffness, shortness of breath, chest pains, wheezing, drooling, trouble swallowing/breathing, abdominal pain, n/v/d, rash, or worsening/concerning symptoms otherwise. Forms: Elevated Blood Pressure, Smoking Cessation Education Referrals: SIMONE BUSH MD [Primary Care Provider] - Follow up as needed LUIZ JAIN MD [ACTIVE STAFF] - Follow up as needed
--- NOTE | 2019-03-26 12:59 | RADIOLOGY REPORT (SQ) ---
EXAM DESCRIPTION: CHEST 2 VIEWS COMPLETED DATE/TIME: 03/26/2019 12:49 pm REASON FOR STUDY: cough COMPARISON: 06/28/2018 EXAM PARAMETERS: NUMBER OF VIEWS: two views TECHNIQUE: Digital Frontal and Lateral radiographic views of the chest acquired. RADIATION DOSE: NA LIMITATIONS: none FINDINGS: LUNGS AND PLEURA: Cannot exclude 12 mm pulmonary nodule in the left base. This is not magy reciated on the lateral view. MEDIASTINUM AND HILAR STRUCTURES: No masses or contour abnormalities. HEART AND VASCULAR STRUCTURES: Heart normal size. No evidence for failure. BONES: No acute findings. HARDWARE: None in the chest. OTHER: No other significant finding. IMPRESSION: Questionable left pulmonary nodule. Consider CT. TECHNICAL DOCUMENTATION: JOB ID: [id number] [employer]- All Rights Reserved Reading location - IP/workstation name: [email or web address]
== END 2019-03-26 13:13 | disposition home or self-care (01) ==
LOC: ER 11:18
DX: J06.9 Acute upper respiratory infection, unspecified (principal); R05 Cough; R09.81 Nasal congestion; R09.89 Other specified symptoms and signs involving the circulatory and respiratory systems; F17.200 Nicotine dependence, unspecified, uncomplicated
CPT/HCPCS: 71046; 99283

== ENCOUNTER 2019-03-30 23:08 | Emergency (ER) | payer MEDICARE, MEDICAID ==
[2019-03-31] MEDS ORDERED: FAMOTIDINE 20 MG TABLET PO ONE (02:19)
[2019-03-31] MEDS ORDERED: IBUPROFEN 600 MG TABLET PO ONE (02:19)
--- NOTE | 2019-03-31 02:20 | ER Document Report ---
HPI - HPI Time Seen by Provider: 03/31/19 02:09 Pain Level: 5 Context: Patient is a 43-year-old male that comes emergency department for chief complaint of left knee pain. He states that for the past few days it has started hurting frequently, popping frequently, hurts to stand and walk on it. He denies any injury. He denies fever/chills. He denies surgery on the knee. He denies any other complaints. Patient reports he has a history of TBI and bipolar disorder. He states he walked here from home and it hurts more now. - REPRODUCTIVE Reproductive: DENIES: : Past Medical History - General Information source: Patient - Social History Smoking Status: Current Every Day Smoker Drug Abuse: None Lives with: Family Family History: Reviewed & Not Pertinent Patient has suicidal ideation: No Patient has homicidal ideation: No - Past Medical History Cardiac Medical History: Reports: Hx Hypercholesterolemia Denies: Hx Coronary Artery Disease, Hx Heart Attack, Hx Hypertension Pulmonary Medical History: Denies: Hx Asthma, Hx Bronchitis, Hx COPD, Hx Pneumonia Neurological Medical History: Denies: Hx Cerebrovascular Accident, Hx Seizures Renal/ Medical History: Denies: Hx Peritoneal Dialysis Musculoskeletal Medical History: 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 IN LAST 30 DAYS: No - HEENT HEENT: Atraumatic, Normal ENT Exam, Normocephalic - NECK Neck: Normal Inspection - RESPIRATORY Respiratory: Breath Sounds Normal, No Respiratory Distress - CARDIOVASCULAR Cardiovascular: Regular Rate, Regular Rhythm, Tachycardia - GI/ABDOMEN Gastrointestinal: Abdomen Soft, Abdomen Non-Tender. negative: Abdomen Tender - BACK Back: Normal Inspection - MUSCULOSKELETAL/EXTREMETIES Musculoskeletal/Extremeties: MAEW, FROM, Tender - Patient complains with palpation over the left knee anteriorly although no noted significant tenderness. There is some popping and positive Julio César's testing. No laxity with ACL and PCL testing. No erythema, swelling, or loss of range of motion. Patient bears weight without difficulty. Normal distal neurovascular exam. No concerning findings of the lower extremity otherwise - NEURO Level of Consciousness: Awake, Alert, Appropriate - DERM Integumentary: Warm, Dry, No Rash Course - Re-evaluation Re-evalutation: Patient initially was tachycardic but he was also noted to be drinking Mountain Dew. He was given p.o. fluids instead of this and on recheck this was normal. His physical exam shows positive Julio César sign on evaluation of the knee but there is no redness, swelling, there is normal range of motion, there is no sign of trauma, he ambulates without difficulty. X-ray is negative. Discussed with patient. Provided with immobilization, recommendations, follow-up, and return precautions. Patient states understanding and agreement. - Vital Signs Vital signs: Temp Pulse Resp BP Pulse Ox 98.3 F 127 H 18 146/90 H 97 03/30/19 23:21 03/30/19 23:21 03/30/19 23:21 03/30/19 23:21 03/30/19 23:21 Procedures - Immobilization left knee Pre-Proc Neuro Vasc Exam: Normal Immobilizer type: Florentino wrap Performed by: PCT Post-Proc Neuro Vasc Exam: Normal Alignment checked and good: Yes Discharge - Discharge Clinical Impression: Left knee pain Qualifiers: Chronicity: acute Qualified Code(s): M25.562 - Pain in left knee Condition: Stable Disposition: HOME, SELF-CARE Additional Instructions: The x-ray of your knee is normal. Your examination is suggestive of a tear of the meniscus. I recommend ice the area 3-4 times a day, you can wrap the knee with the Florentino wrap and use the crutches for the first couple of days if needed, elevate, take the anti-inflammatory/pain medication as prescribed. Follow-up with primary care. If symptoms continue follow-up with the orthopedics referral. Return for any concerning symptoms including severe worsening pain or swelling. Prescriptions: Naproxen Sodium [Aleve] 220 mg PO BID PRN #20 tablet PRN Reason: Referrals: TATIANA CHENG MD [ACTIVE STAFF] - Follow up in 1 week
--- NOTE | 2019-03-31 03:23 | RADIOLOGY REPORT (SQ) ---
EXAM DESCRIPTION: Left knee RadLex: XR KNEE 4 OR MORE VIEWS Views: 4 CLINICAL HISTORY: 43 years Male, popping, pain COMPARISON: None. FINDINGS: Negative for acute fracture, dislocation, or radiopaque foreign body. No joint effusion. No lytic bone changes or periosteal reaction. IMPRESSION: 1. No acute findings.
[2019-03-31 03:59] VITALS: BP 130/79
== END 2019-03-31 04:14 | disposition home or self-care (01) ==
LOC: ER 23:08
DX: M25.562 Pain in left knee (principal); R00.0 Tachycardia, unspecified; F17.200 Nicotine dependence, unspecified, uncomplicated
CPT/HCPCS: 99283; 73564; A9270

== ENCOUNTER 2019-04-06 21:54 | Emergency (ER) | payer MEDICARE, MEDICAID ==
[2019-04-06 22:12] VITALS: BP 134/81
[2019-04-06] MEDS ORDERED: HYDROCODONE/ACETAMINOPHEN 5-325 MG (6 TAB/ER DISP) PO PRN (23:00)
--- NOTE | 2019-04-06 23:04 | ER Document Report ---
HPI - HPI Patient complains to provider of: Left knee pain Time Seen by Provider: 04/06/19 22:59 Onset: This afternoon Onset/Duration: Persistent Quality of pain: Sharp Pain Level: 5 Context: Patient states he was diagnosed with a torn meniscus last week. Patient saw the orthopedic doctor and received a joint injection today. Patient states since receiving the injection he has had increased pain. Patient denies any new injury. Patient denies any fever. Associated Symptoms: Other - Left knee joint pain. denies: Fever Exacerbated by: Standing, Movement, Walking Relieved by: Denies Similar symptoms previously: Yes Recently seen / treated by doctor: Yes - ROS ROS below otherwise negative: Yes Systems Reviewed and Negative: Yes All other systems reviewed and negative - CONSTITUTIONAL Constitutional: DENIES: Fever, Chills - NEURO Neurology: DENIES: Weakness - GASTROINTESTINAL Gastrointestinal: DENIES: Nausea, Patient vomiting - REPRODUCTIVE Reproductive: DENIES: : - MUSCULOSKELETAL Musculoskeletal: REPORTS: Extremity pain. DENIES: Swelling - DERM Skin Color: Normal Skin Problems: None Past Medical History - General Information source: Patient - Social History Smoking Status: Current Every Day Smoker Frequency of alcohol use: None Drug Abuse: None Occupation: None Lives with: Alone Family History: Reviewed & Not Pertinent - Past Medical History Cardiac Medical History: Reports: Hx Hypercholesterolemia Neurological Medical History: Denies: Hx Cerebrovascular Accident, Hx Seizures Renal/ Medical History: Denies: Hx Peritoneal Dialysis Musculoskeletal Medical History: Reports Hx Arthritis - RIGHT KNEE Psychiatric Medical History: Reports: Hx Bipolar Disorder Past Surgical History: Reports: Hx Orthopedic Surgery - Immunizations Hx Diphtheria, Pertussis, Tetanus Vaccination: Yes Hx Pneumococcal Vaccination: 12/23/10 Vertical Provider Document - CONSTITUTIONAL Agree With Documented VS: No - HR 114 Exam Limitations: No Limitations General Appearance: WD/WN, No Apparent Distress - INFECTION CONTROL TRAVEL OUTSIDE OF THE [place] IN LAST 30 DAYS: No - HEENT HEENT: Atraumatic, Normocephalic - NECK Neck: Normal Inspection, Supple. negative: Lymphadenopathy-Left, Lymphadenopathy-Right - RESPIRATORY Respiratory: Breath Sounds Normal, No Respiratory Distress - CARDIOVASCULAR Cardiovascular: No Murmur, Tachycardia - MUSCULOSKELETAL/EXTREMETIES Musculoskeletal/Extremeties: MAEW, Tender - Left knee joint tenderness with range of motion and weightbearing, no effusion, no laxity with varus or valgus maneuvers. Patient with bandage over the injection site, no obvious erythema. No calor to the joint., No Edema. negative: Eccymosis - NEURO Level of Consciousness: Awake, Alert, Appropriate Motor/Sensory: No Motor Deficit - DERM Integumentary: Warm, Dry, No Rash Course - Re-evaluation Re-evalutation: 04/06/19 23:02 Patient had joint injection to left knee, no overt signs of infection. No erythema, no swelling, no calor to the joint. Patient complains of increased pain since receiving the injection. Patient mildly tachycardic in triage although patient states that he has tachycardia typically whenever he is in pain. Patient will be given a short course of pain medication encouraged to not take pain medicine if he is taking his benzodiazepine drug. - Vital Signs Vital signs: Temp Pulse Resp BP Pulse Ox 97.5 F 114 H 20 134/81 H 98 04/06/19 22:11 04/06/19 22:59 04/06/19 22:11 04/06/19 22:11 04/06/19 22:11 Discharge - Discharge Clinical Impression: Left knee pain Qualifiers: Chronicity: unspecified Qualified Code(s): M25.562 - Pain in left knee Condition: Stable Disposition: HOME, SELF-CARE Instructions: Oral Narcotic Medication ([facility]) Additional Instructions: Return immediately for any new or worsening symptoms Followup with your primary care provider, call tomorrow to make a followup appointment Follow-up with your orthopedic doctor for recheck, call tomorrow for an appointment Do not take the pain medication if you are taking your Ativan, only take 1 medication of the other to avoid adverse interactions.
== END 2019-04-06 23:10 | disposition home or self-care (01) ==
LOC: ER 21:54
DX: M25.562 Pain in left knee (principal); F17.200 Nicotine dependence, unspecified, uncomplicated
CPT/HCPCS: 99283; A9270

== ENCOUNTER 2019-04-14 22:12 | Emergency (ER) | payer MEDICARE, MEDICAID ==
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
[2019-04-14] MEDS ORDERED: PREDNISONE 20 MG TABLET PO ONE (23:45)
[2019-04-15 00:25] VITALS: BP 140/95
== END 2019-04-15 00:48 | disposition home or self-care (01) ==
LOC: ER 22:12
DX: M25.562 Pain in left knee (principal); G89.29 Other chronic pain; Z87.891 Personal history of nicotine dependence
CPT/HCPCS: 99283; A9270; J7512

== ENCOUNTER 2019-04-16 05:24 | Emergency (ER) | payer MEDICARE, MEDICAID ==
[2019-04-16 05:41] VITALS: BP 125/84
== END 2019-04-16 07:31 | disposition left against medical advice (07) ==
LOC: ER 05:24
DX: Z53.21 Procedure and treatment not carried out due to patient leaving prior to being seen by health care provider (principal)

== ENCOUNTER 2019-04-16 19:11 | Emergency (ER) | payer MEDICARE, MEDICAID ==
[2019-04-16 19:41] VITALS: BP 152/88
== END 2019-04-16 20:20 | disposition left against medical advice (07) ==
LOC: ER 19:11
DX: Z53.21 Procedure and treatment not carried out due to patient leaving prior to being seen by health care provider (principal)

== ENCOUNTER 2019-04-21 22:21 | Emergency (ER) | payer MEDICARE, MEDICAID ==
[2019-04-21 22:47] VITALS: BP 130/92
--- NOTE | 2019-04-21 23:41 | ER Document Report ---
ED Extremity Problem, Lower - General Chief Complaint: Knee Pain Stated Complaint: LEFT LEG NUMBNESS Time Seen by Provider: 04/21/19 23:38 TRAVEL OUTSIDE OF THE [place] IN LAST 30 DAYS: No - HPI Notes: 43-year-old male to the emergency department by EMS with complaints of right knee pain and numbness. He has had right knee pain for over 1 month since he tore his meniscus. He states that nothing works for his pain. He states that he sees in orthopedics. He states that he is going to PT tomorrow. He states that he does not want anything for pain. He states that tonight that he felt a little bit of numbness over the knee and got worried. Denies any fevers or chills. He has been using crutches. He has not fallen. - Related Data Allergies/Adverse Reactions: aspirin Adverse Reaction (Mild, Verified 04/21/19 23:35) Past Medical History - General Information source: Patient - Social History Smoking Status: Former Smoker Frequency of alcohol use: None Drug Abuse: None Family History: Reviewed & Not Pertinent Patient has suicidal ideation: No Patient has homicidal ideation: No - Past Medical History Cardiac Medical History: Reports: Hx Hypercholesterolemia Denies: Hx Coronary Artery Disease, Hx Heart Attack, Hx Hypertension Pulmonary Medical History: Denies: Hx Asthma, Hx Bronchitis, Hx COPD, Hx Pneumonia Neurological Medical History: Denies: Hx Cerebrovascular Accident, Hx Seizures Renal/ Medical History: Denies: Hx Peritoneal Dialysis Musculoskeletal Medical History: Reports Hx Arthritis - RIGHT KNEE Psychiatric Medical History: Reports: Hx Bipolar Disorder Past Surgical History: Reports: Hx Orthopedic Surgery - Immunizations Hx Diphtheria, Pertussis, Tetanus Vaccination: Yes Hx Pneumococcal Vaccination: 12/23/10 Review of Systems - Review of Systems Constitutional: denies: Chills, Fever EENT: No symptoms reported Cardiovascular: No symptoms reported Respiratory: denies: Cough, Short of breath Gastrointestinal: denies: Abdominal pain, Diarrhea, Nausea, Vomiting Genitourinary: No symptoms reported Musculoskeletal: See HPI, Joint pain, Joint swelling Skin: No symptoms reported Hematologic/Lymphatic: No symptoms reported Neurological/Psychological: No symptoms reported -: Yes All other systems reviewed and negative Physical Exam - Vital signs Vitals: Temp Pulse Resp BP Pulse Ox 98.2 F 119 H 20 130/92 H 100 04/21/19 22:46 04/21/19 22:46 04/21/19 22:46 04/21/19 22:46 04/21/19 22:46 Interpretation: Normal - General General appearance: Appears well, Alert In distress: None - HEENT Head: Normocephalic, Atraumatic Eyes: Normal Pupils: PERRL - Respiratory Respiratory status: No respiratory distress Chest status: Nontender Breath sounds: Normal. No: Rales, Rhonchi, Stridor, Wheezing Chest palpation: Normal - Cardiovascular Rhythm: Regular Heart sounds: Normal auscultation Murmur: No - Abdominal Inspection: Normal Distension: No distension Bowel sounds: Normal Tenderness: Nontender Organomegaly: No organomegaly - Back Back: Normal, Nontender - Extremities Notes: There is tenderness to palpation over the left knee on the medial aspect of the anterior knee joint. There is mild joint effusion. There is no erythema or warmth. Patient has increased pain with anterior drawer. Negative valgus varus stress. Is using crutches. Nontender to palpation over the left hip, left ankle, left foot. Sensation appears to be grossly intact - Neurological Neuro grossly intact: Yes Cognition: Normal Orientation: AAOx4 Ying Coma Scale Eye Opening: Spontaneous Ying Coma Scale Verbal: Oriented Ying Coma Scale Motor: Obeys Commands Ying Coma Scale Total: 15 Speech: Normal Motor strength normal: LUE, RUE, LLE, RLE Sensory: Normal - Psychological Associated symptoms: Normal affect, Normal mood - Skin Skin Temperature: Warm Skin Moisture: Dry Skin Color: Normal Course - Re-evaluation Re-evalutation: Impression: Left knee injury with known meniscus tear. Patient has grossly intact sensation. Does not have a brace on so offered Florentino wrap. He does not want any medicine for the pain. Will discharge home have him follow-up with orthopedist. - Vital Signs Vital signs: Temp Pulse Resp BP Pulse Ox 98.2 F 119 H 20 130/92 H 100 04/21/19 22:46 04/21/19 22:46 04/21/19 22:46 04/21/19 22:46 04/21/19 22:46 Discharge - Discharge Clinical Impression: Left knee pain Qualifiers: Chronicity: acute Qualified Code(s): M25.562 - Pain in left knee Knee meniscus pain Qualifiers: Laterality: left Qualified Code(s): M25.562 - Pain in left knee Condition: Stable Disposition: HOME, SELF-CARE Instructions: Use of Crutches ([facility]), Ice & Elevation ([facility]) Additional Instructions: keep your physical therapy appointment without fail. Follow up with your orthopedic surgeon.
== END 2019-04-21 23:48 | disposition home or self-care (01) ==
LOC: ER 22:21
DX: M25.562 Pain in left knee (principal); M25.561 Pain in right knee; R20.0 Anesthesia of skin; Z87.891 Personal history of nicotine dependence
CPT/HCPCS: 99283

== ENCOUNTER 2019-04-24 13:56 | Emergency (ER) | payer MEDICARE, MEDICAID ==
--- NOTE | 2019-04-24 15:27 | ER Document Report ---
ED Extremity Problem, Lower - General Chief Complaint: Leg Swelling Stated Complaint: LEFT LEG PAIN Time Seen by Provider: 04/24/19 15:22 TRAVEL OUTSIDE OF THE [place] IN LAST 30 DAYS: No - HPI Notes: 43-year-old male to the emergency department with complaints of left lower leg swelling that began today. He states that the left lower leg does not hurt. He has been seen in our department multiple times for left knee pain after he had a meniscal injury. He is being followed by orthopedist. He is having physical therapy. He states that the swelling started today. He denies any falls or hitting his ankle on anything. His orthopedist wanted him to come to the emergency department to be evaluated for possible DVT. Patient denies any shortness of breath or chest pain. - Related Data Allergies/Adverse Reactions: aspirin Adverse Reaction (Mild, Verified 04/21/19 23:35) Past Medical History - General Information source: Patient - Social History Smoking Status: Former Smoker Frequency of alcohol use: None Drug Abuse: None Family History: Reviewed & Not Pertinent Patient has suicidal ideation: No Patient has homicidal ideation: No - Past Medical History Cardiac Medical History: Reports: Hx Hypercholesterolemia Denies: Hx Coronary Artery Disease, Hx Heart Attack, Hx Hypertension Pulmonary Medical History: Denies: Hx Asthma, Hx Bronchitis, Hx COPD, Hx Pneumonia Neurological Medical History: Denies: Hx Cerebrovascular Accident, Hx Seizures Renal/ Medical History: Denies: Hx Peritoneal Dialysis Musculoskeletal Medical History: Reports Hx Arthritis - RIGHT KNEE Psychiatric Medical History: Reports: Hx Bipolar Disorder Past Surgical History: Reports: Hx Orthopedic Surgery - Immunizations Hx Diphtheria, Pertussis, Tetanus Vaccination: Yes Hx Pneumococcal Vaccination: 12/23/10 Review of Systems - Review of Systems Constitutional: denies: Chills, Fever EENT: No symptoms reported Cardiovascular: denies: Chest pain, Palpitations, Heart racing, Dizziness, Lightheaded Respiratory: denies: Cough, Short of breath Gastrointestinal: denies: Abdominal pain, Diarrhea, Nausea, Vomiting Genitourinary: No symptoms reported Musculoskeletal: See HPI, Joint pain, Leg swelling, Ankle swelling Skin: No symptoms reported Hematologic/Lymphatic: No symptoms reported Neurological/Psychological: No symptoms reported -: Yes All other systems reviewed and negative Physical Exam - Vital signs Vitals: Temp Pulse Resp BP Pulse Ox 98.4 F 124 H 18 168/107 H 99 04/24/19 15:08 04/24/19 15:08 04/24/19 15:08 04/24/19 15:08 04/24/19 15:08 Interpretation: Normal - General General appearance: Appears well, Alert - HEENT Head: Normocephalic, Atraumatic Eyes: Normal Pupils: PERRL - Respiratory Respiratory status: No respiratory distress Chest status: Nontender. No: Prolonged expirations Breath sounds: Normal. No: Productive cough, Rales, Rhonchi, Wheezing Chest palpation: Normal - Cardiovascular Rhythm: Regular Heart sounds: Normal auscultation Murmur: No - Abdominal Inspection: Normal Distension: No distension Bowel sounds: Normal Tenderness: Nontender Organomegaly: No organomegaly - Back Back: Normal, Nontender - Extremities Notes: There is noted edema to the left lower extremity to the top of the foot into the ankle. It is nonpitting. There is no tenderness to palpation. There is mild tenderness to palpation over the medial aspect of the left knee with joint effusion. This is unchanged from prior exam. DP pulses are intact and equal. Cap refill is less than 2 seconds. - Neurological Neuro grossly intact: Yes Cognition: Normal Orientation: AAOx4 [place] Coma Scale Eye Opening: Spontaneous [place] Coma Scale Verbal: Oriented [place] Coma Scale Motor: Obeys Commands Ying Coma Scale Total: 15 Speech: Normal Motor strength normal: LUE, RUE, LLE, RLE Sensory: Normal - Psychological Associated symptoms: Normal affect, Normal mood - Skin Skin Temperature: Warm Skin Moisture: Dry Skin Color: Normal Course - Re-evaluation Re-evalutation: 04/24/19 18:44 Impression: Left lower extremity edema. Meniscal pain. Patient had a Doppler that was negative today in the emergency department. He denies any shortness of breath or chest pain. He is afebrile. He denies any other symptoms except for his knee pain. We will discharge home with JUANJO linton. We will have him follow- up with orthopedist without fail. Patient agrees with the plan - Vital Signs Vital signs: Temp Pulse Resp BP Pulse Ox 98.4 F 125 H 16 145/97 H 99 04/24/19 17:22 04/24/19 17:22 04/24/19 17:22 04/24/19 17:22 04/24/19 17:22 - Diagnostic Test Radiology reviewed: Image reviewed, Reports reviewed Discharge - Discharge Clinical Impression: Edema of left lower extremity Knee meniscus pain Qualifiers: Laterality: left Qualified Code(s): M25.562 - Pain in left knee Condition: Stable Disposition: HOME, SELF-CARE Instructions: Edema, Peripheral ([facility]) Additional Instructions: Wear compression hose without fail. Elevate the leg. You had no clot in your leg on ultrasound today. Follow-up with your orthopedist without fail. Prescriptions: Scottie.stocking,Thigh,Reg,Med [Futuro Anti-Embolism] 1 each [facility] DAILY #1 each
[2019-04-24 17:23] VITALS: BP 145/97
--- NOTE | 2019-04-24 17:29 | RADIOLOGY REPORT (SQ) ---
EXAM DESCRIPTION: VENOUS UNILATERAL LOWER COMPLETED DATE/TIME: 04/24/2019 5:09 pm REASON FOR STUDY: left lower leg swelling sent by ortho COMPARISON: None. TECHNIQUE: Dynamic and static hernandes scale and color images acquired of the left leg venous system. Se lected spectral images acquired with additional compression and augmentation maneuvers. The contralat eral common femoral vein and saphenofemoral junction were also imaged. Images stored on PACS. LIMITATIONS: None. FINDINGS: COMMON FEMORAL: Normal phasicity, compression and augmentation. No visualized echogenic ma terial on hernandes scale. No defects on color images. FEMORAL: Normal compression and augmentation. No visualized echogenic material on hernandes scale. No defe cts on color images. POPLITEAL: Normal compression, augmentation. No visualized echogenic material on hernandes scale. No defec ts on color images. CALF VESSELS: Normal compression, augmentation. No visualized echogenic material on hernandes scale. No de fects on color images. GSV and SSV: Normal compression, augmentation. No visualized echogenic material on hernandes scale. No def ects on color images. ANY DEEP VENOUS INSUFFICIENCY: Not evaluated. ANY EVIDENCE OF POPLITEAL CYST: No. OTHER: No other significant finding. CONTRALATERAL COMMON FEMORAL VEIN AND SAPHENOFEMORAL JUNCTION: Normal phasicity, compression and augmentation. No visualized echogenic material on hernandes scale. No de fects on color images. IMPRESSION: NO EVIDENCE OF DVT OR SVT IN THE LEFT LEG. TECHNICAL DOCUMENTATION: JOB ID: [id number] [employer]- All Rights Reserved Reading location - IP/workstation name: [email or web address]
== END 2019-04-24 17:59 | disposition home or self-care (01) ==
LOC: ER 13:56
DX: R60.0 Localized edema (principal); M25.472 Effusion, left ankle; M25.562 Pain in left knee; Z87.891 Personal history of nicotine dependence
CPT/HCPCS: 93971; 99283

== ENCOUNTER 2019-05-14 22:57 | Emergency (ER) | payer MEDICARE, MEDICAID ==
[2019-05-14] MEDS ORDERED: DEXAMETHASONE SOD PHOS INJ 10 MG/1 ML VIAL IM ONE (23:25)
--- NOTE | 2019-05-14 23:29 | ER Document Report ---
ED Medical Screen (RME) - General Chief Complaint: Leg Swelling Stated Complaint: LEFT KNEE SWELLING Time Seen by Provider: 05/14/19 23:19 Notes: Patient is a 43-year-old male with chronic knee pain who presents to the emergency department with a chief complaint of left knee pain. Patient states that he is currently in physical therapy and following with orthopedics in regards to his knee pain. He was told by the orthopedic doctor that he most likely has a torn meniscus. Patient states that his knee is swollen. He has been using crutches, but applying pressure to that area. Exam: Unable to fully assess knee due to the patient wearing jeans. I have greeted and performed a rapid initial assessment of this patient. A comprehensive ED assessment and evaluation of the patient, analysis of test results and completion of medical decision making process will be conducted by an additional ED providers. TRAVEL OUTSIDE OF THE [place] IN LAST 30 DAYS: No - Related Data Allergies/Adverse Reactions: aspirin Adverse Reaction (Mild, Verified 05/14/19 23:12) Past Medical History - Social History Chew tobacco use (# tins/day): No Frequency of alcohol use: None Drug Abuse: None - Past Medical History Cardiac Medical History: Reports: Hx Hypercholesterolemia Denies: Hx Coronary Artery Disease, Hx Heart Attack, Hx Hypertension Pulmonary Medical History: Denies: Hx Asthma, Hx Bronchitis, Hx COPD, Hx Pneumonia Neurological Medical History: Denies: Hx Cerebrovascular Accident, Hx Seizures Renal/ Medical History: Denies: Hx Peritoneal Dialysis Musculoskeltal Medical History: Reports Hx Arthritis - RIGHT KNEE Psychiatric Medical History: Reports: Hx Bipolar Disorder Past Surgical History: Reports: Hx Orthopedic Surgery - Immunizations Hx Diphtheria, Pertussis, Tetanus Vaccination: Yes Physical Exam - Vital signs Vitals: Temp Pulse Resp BP Pulse Ox 97.5 F 104 H 18 162/92 H 100 05/14/19 23:07 05/14/19 23:07 05/14/19 23:07 05/14/19 23:07 05/14/19 23:07 Course - Vital Signs Vital signs: Temp Pulse Resp BP Pulse Ox 97.5 F 104 H 18 162/92 H 100 05/14/19 23:07 05/14/19 23:07 05/14/19 23:07 05/14/19 23:07 05/14/19 23:07
--- NOTE | 2019-05-15 01:28 | ER Document Report ---
HPI - HPI Time Seen by Provider: 05/14/19 23:19 Pain Level: 5 Context: Patient is a 43-year-old male that comes to the emergency department for chief complaint of left knee pain. He states this is been bothering him intermittently for over a month now. He states he was evaluated by orthopedics and told he might have a meniscus tear or more, he states he did have a steroid injection in the knee and this helped for a couple of weeks but stopped working after that. He states that he keeps having to start using crutches again because of pain and popping in his knee. He cannot recall a specific injury to the knee. He denies redness or fever. He states it was previously much more swollen than it is today but today it was hurting him so he came in for evaluation. He denies any other complaints. - CONSTITUTIONAL Constitutional: DENIES: Fever, Chills - EENT EENT: DENIES: Sore Throat, Ear Pain, Eye problems - NEURO Neurology: DENIES: Headache, Weakness, Vision blurred, Dizzinesss / Vertigo - CARDIOVASCULAR Cardiovascular: DENIES: Chest pain - RESPIRATORY Respiratory: DENIES: Trouble Breathing, Coughing - GASTROINTESTINAL Gastrointestinal: DENIES: Abdominal Pain, Black / Bloody Stools - URINARY Urinary: DENIES: Dysuria, Urgency, Frequency - REPRODUCTIVE Reproductive: DENIES: : - MUSCULOSKELETAL Musculoskeletal: REPORTS: Extremity pain - L knee - DERM Skin Color: Normal, [place] Past Medical History - General Information source: Patient - Social History Smoking Status: Former Smoker Chew tobacco use (# tins/day): No Frequency of alcohol use: None Drug Abuse: None Lives with: Alone Family History: Reviewed & Not Pertinent Patient has suicidal ideation: No Patient has homicidal ideation: No - Past Medical History Cardiac Medical History: Reports: Hx Hypercholesterolemia Denies: Hx Coronary Artery Disease, Hx Heart Attack, Hx Hypertension Pulmonary Medical History: Denies: Hx Asthma, Hx Bronchitis, Hx COPD, Hx Pneumonia Neurological Medical History: Denies: Hx Cerebrovascular Accident, Hx Seizures Renal/ Medical History: Denies: Hx Peritoneal Dialysis Musculoskeletal Medical History: Reports Hx Arthritis - RIGHT KNEE Psychiatric Medical History: Reports: Hx Bipolar Disorder Past Surgical History: Reports: Hx Orthopedic Surgery - Immunizations Hx Diphtheria, Pertussis, Tetanus Vaccination: Yes Hx Pneumococcal Vaccination: 12/23/10 Vertical Provider Document - CONSTITUTIONAL General Appearance: WD/WN, No Apparent Distress - INFECTION CONTROL TRAVEL OUTSIDE OF THE [place] IN LAST 30 DAYS: No - HEENT HEENT: Atraumatic, Normocephalic - NECK Neck: Normal Inspection - RESPIRATORY Respiratory: Breath Sounds Normal, No Respiratory Distress - CARDIOVASCULAR Cardiovascular: Regular Rate, Regular Rhythm - GI/ABDOMEN Gastrointestinal: Abdomen Soft, Abdomen Non-Tender - BACK Back: Normal Inspection - MUSCULOSKELETAL/EXTREMETIES Musculoskeletal/Extremeties: MAEW, FROM, Non-Tender - Patient points to me the area where the left knee is bothering him but there is no palpable tenderness, effusion, erythema, noted tenderness. No signs of injury. Full range of motion at the knee. Normal hip, ankle, foot exam. Normal distal neurovascular exam. - NEURO Level of Consciousness: Awake, Alert, Appropriate Motor/Sensory: No Motor Deficit, No Sensory Deficit - DERM Integumentary: Warm, Dry, No Rash Course - Re-evaluation Re-evalutation: Patient has no swelling over the knee, there is no edema or effusion, there is no erythema or noted tenderness, he can ambulate without difficulty. Full range of motion. His knee actually looks better than the previous time that I saw him. Patient has already received steroids from triage, dexamethasone. Discussed this with patient. Patient has not had an injury, I do not feel an x- ray is indicated at this time. Patient already has MRI scheduled, this is the appropriate next type of patient's management. Discussed return precautions, patient states understanding and agreement. - Vital Signs Vital signs: Temp Pulse Resp BP Pulse Ox 97.5 F 104 H 18 162/92 H 100 05/14/19 23:07 05/14/19 23:07 05/14/19 23:07 05/14/19 23:07 05/14/19 23:07 Discharge - Discharge Clinical Impression: Left knee pain Qualifiers: Chronicity: acute Qualified Code(s): M25.562 - Pain in left knee Condition: Stable Disposition: HOME, SELF-CARE Additional Instructions: Your left knee examination is reassuring at this time. You were given a dose of steroids tonight that should last in your system for several days. Ice the knee, use crutches if needed, follow-up with your MRI for additional evaluation and management. Return if you worsen including developing redness, severe worsening swelling or pain, fever, or any other concerning symptoms. Referrals: ROCK SANDOVAL MD [Primary Care Provider] - Follow up as needed
[2019-05-15 01:51] VITALS: BP 155/90
== END 2019-05-15 01:45 | disposition home or self-care (01) ==
LOC: ER 22:57
DX: M25.562 Pain in left knee (principal); M79.89 Other specified soft tissue disorders; Z87.891 Personal history of nicotine dependence
CPT/HCPCS: J1100

== ENCOUNTER 2019-05-25 21:56 | Emergency (ER) | payer MEDICARE, MEDICAID ==
[2019-05-25 22:08] VITALS: BP 150/87
== END 2019-05-25 23:47 | disposition left against medical advice (07) ==
LOC: ER 21:56
DX: Z53.21 Procedure and treatment not carried out due to patient leaving prior to being seen by health care provider (principal)

== ENCOUNTER 2019-06-15 22:18 | Emergency (ER) | payer MEDICARE, MEDICAID ==
--- NOTE | 2019-06-15 23:01 | RADIOLOGY REPORT (SQ) ---
EXAM DESCRIPTION: XR SHOULDER 2 OR MORE VIEWS COMPLETED DATE/TME: 06/15/2019 00:00 CLINICAL HISTORY: 43 years, Male, bone tenderness COMPARISON: None. NUMBER OF VIEWS: 3 TECHNIQUE: Internal/external rotation and transscapular Y projections were acquired. LIMITATIONS: None. FINDINGS: Visualized osseous structures are normal in appearance. Joint spaces are well-maintained. No acute fracture or dislocation is evident. IMPRESSION: No acute osseous anomaly. copyright 2010 [employer]- All Rights Reserved
[2019-06-15] MEDS ORDERED: PREDNISONE 20 MG TABLET PO ONE (23:34)
--- NOTE | 2019-06-15 23:34 | ER Document Report ---
ED Extremity Problem, Upper - General Chief Complaint: Shoulder Pain Stated Complaint: SHOULDER PAIN Time Seen by Provider: 06/15/19 23:13 Primary Care Provider: ROCK SANDOVAL MD [Primary Care Provider] - Follow up as needed Notes: 43-year-old man states that he developed right shoulder pain tonight after he laid down to sleep. He awoke with pain in the upper trapezius region of the right shoulder. He denies known injury. 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 TRAVEL OUTSIDE OF THE [place] IN LAST 30 DAYS: No - Related Data Allergies/Adverse Reactions: aspirin Adverse Reaction (Mild, Verified 05/25/19 23:38) Past Medical History - Social History Smoking Status: Unknown if Ever Smoked Family History: Reviewed & Not Pertinent Patient has suicidal ideation: No Patient has homicidal ideation: No - Past Medical History Cardiac Medical History: Reports: Hx Hypercholesterolemia Denies: Hx Coronary Artery Disease, Hx Heart Attack, Hx Hypertension Pulmonary Medical History: Denies: Hx Asthma, Hx Bronchitis, Hx COPD, Hx Pneumonia Neurological Medical History: Denies: Hx Cerebrovascular Accident, Hx Seizures Renal/ Medical History: Denies: Hx Peritoneal Dialysis Musculoskeletal Medical History: Reports Hx Arthritis - RIGHT KNEE Psychiatric Medical History: Reports: Hx Bipolar Disorder Past Surgical History: Reports: Hx Orthopedic Surgery - Immunizations Hx Diphtheria, Pertussis, Tetanus Vaccination: Yes Hx Pneumococcal Vaccination: 12/23/10 Review of Systems - Review of Systems Notes: Constitutional: Negative for fever. HENT: Negative for sore throat. Eyes: Negative for visual changes. Cardiovascular: Negative for chest pain. Respiratory: Negative for shortness of breath. Gastrointestinal: Negative for abdominal pain, vomiting or diarrhea. Genitourinary: Negative for dysuria. Musculoskeletal: + Right upper trapezius muscle pain/right shoulder pain. Skin: Negative for rash. Neurological: Negative for headaches, weakness or numbness. 10 point ROS negative except as marked above and in HPI. Physical Exam - Vital signs Vitals: Temp Pulse Resp BP 97.7 F 129 H 20 138/81 H 06/15/19 22:24 06/15/19 22:24 06/15/19 22:24 06/15/19 22:24 - Notes Notes: PHYSICAL EXAMINATION: Physical Exam: General: Well-nourished well-developed 43-year-old man in no acute distress HEENT: NC/AT, pupils equal round and reactive to light, MM moist,nares clear, oropharynx clear, airway patent Neck: supple, no adenopathy, no masses. Good range of motion Lungs: clear, no wheezing, no rales no rhonchi CVS: Regular rate and rhythm no murmur gallop or rub Abdomen: Soft, active, nontender, no masses, no hepatosplenomegaly Ext: Right upper trapezius muscle tenderness and tightness, decreased range of motion in the right shoulder with abduction at 90 degrees. No crepitus, no deformity. Neuro: Alert and responsive, moving all 4 extremities on command, cranial nerves intact, no focal findings Skin: Intact no open lesions, no rash PSYCH: Normal mood, normal affect. Course - Re-evaluation Re-evalutation: 06/15/19 23:51 Patient appears to have muscle spasms in the upper trapezius region, x-ray of the shoulder is negative for bony changes or arthritic changes. He is given prednisone 20 mg p.o. and baclofen 10 mg p.o. He is given prescriptions for the same and instructed to follow-up as an outpatient. - Vital Signs Vital signs: Temp Pulse Resp BP Pulse Ox 97.7 F 129 H 20 138/81 H 06/15/19 22:24 06/15/19 22:24 06/15/19 22:24 06/15/19 22:24 - Diagnostic Test Radiology reviewed: Image reviewed, Reports reviewed - Right shoulder x-ray: No bony abnormalities seen. Discharge - Discharge Clinical Impression: Musculoskeletal disorder involving upper trapezius muscle Right shoulder pain Qualifiers: Chronicity: unspecified Qualified Code(s): M25.511 - Pain in right shoulder Condition: Good Disposition: HOME, SELF-CARE Additional Instructions: You are diagnosed with a right shoulder pain, likely upper trapezius muscle spasm. Please take the medication as prescribed and follow-up with your physician as needed. If your symptoms are worsening or if you have other concerns you may return to the emergency department. HOME CARE INSTRUCTIONS & INFORMATION: Thank you for choosing us for your medical needs. We hope you're satisfied with the care you received. After you leave, you must properly care for your problem and, at the same time, observe its progress. Any condition can change. Some illnesses can change rapidly over hours or days. If your condition worsens, return to the Emergency Department or see your physician promptly. ABOUT YOUR X-RAYS AND EKG'S: If you had an EKG or X-rays taken, they have been read by the Emergency Physician. The X-rays and EKG's will also be read by a Radiologist or Double Bass Player within 24 hours. If discrepancies are noted, you will be notified by telephone. Please be certain the ED has a correct telephone number & address where you can be reached. Also, realize that some fractures or abnormalities do not show up on initial X-rays. If your symptoms continue, see your physician. ABOUT YOUR LABORATORY TEST: If you had laboratory tests, the results have been reviewed by the Emergency Physician. Some test results (for example cultures) may not be available for several days. You will be contacted if any test result shows you need additional treatment. Please be certain the ED has a correct telephone number and address where you can be reached. ABOUT YOUR MEDICATIONS: You will receive instructions on how to take your medicine on the prescription label you receive. Additional information may be provided by the Pharmacy. If you have questions afterwards, call the ED for clarification or further instructions. Some prescribed medications may cause drowsiness. Do not perform tasks such as driving a car or operating machinery without consulting your Pharmacist. If you feel you need a refill of pain medication, your condition will need re-evaluation. Please do not call for a refill of any medication. ABOUT YOUR SIGNATURE: Signature of this document acknowledges to followin. Understanding that you received emergency treatment and that you may be released before al medical problems are known or treated. Please be certain the ED has a correct phone number & address where you can be reached. 2. Acknowledgement that you will arrange for follow-up care as recommended. 3. Authorization for the Emergency Physician to provide information to your follow-up Physician in order to maximize your care. AT ANY TIME, IF YOUR SYMPTOMS CHANGE SIGNIFICANTLY OR WORSEN OR YOU DEVELOP NEW SYMPTOMS, RETURN TO THE EMERGENCY DEPARTMENT IMMEDIATELY FOR RE-EVALUATION. OUR GOAL IS TO PROVIDE EXCELLENT MEDICAL CARE! WE HOPE THAT WE HAVE MET YOUR EXPECTATIONS DURING YOUR EMERGENCY DEPARTMENT VISIT AND THAT YOU FEEL YOU HAVE RECEIVED EXCELLENT CARE! Prescriptions: Baclofen [Baclofen 10 mg Tablet] 10 mg PO TID #20 tab Prednisone [Deltasone 20 mg Tablet] 1 tab PO BID 5 Days #10 tablet Referrals: ROCK SANDOVAL MD [Primary Care Provider] - Follow up as needed
[2019-06-15] MEDS ORDERED: BACLOFEN 10 MG TABLET PO ONE (23:35)
[2019-06-15 23:53] VITALS: BP 133/83
== END 2019-06-16 00:06 | disposition home or self-care (01) ==
LOC: ER 22:18
DX: M25.511 Pain in right shoulder (principal); M62.838 Other muscle spasm; E78.00 Pure hypercholesterolemia, unspecified; Z88.6 Allergy status to analgesic agent
CPT/HCPCS: 99283; 73030; A9270 ×2; J7512

== ENCOUNTER 2019-07-04 02:10 | Emergency (ER) | payer MEDICARE, MEDICAID ==
[2019-07-04] MEDS ORDERED: CLINDAMYCIN HCL 150 MG CAPSULE PO ONE (03:04)
--- NOTE | 2019-07-04 03:23 | ER Document Report ---
Entered by ASTON HUI SCRIBE 07/04/19 0305 Acting as scribe for:RYAN OROZCO IV, MD ED General - General Chief Complaint: Arm Pain Stated Complaint: ARM BURNING Time Seen by Provider: 07/04/19 02:15 Primary Care Provider: GEGE MELISSA MD [HONORARY] - Follow up as needed Information source: Patient Notes: This 43-year-old male presents to the emergency department complaining of left wrist erythema and pain that began four days. Patient describes the pain as burning and has associated warmth. Patient explains that four days ago he was washing his hands with alcohol and water then went to help land . After he helped his landlord, he washed his hands with anti-bacterial soap and warm water. Patient states he showered that night and the next morning he "was about to call 911". Patient denies scrubbing hard when washing his hands. TRAVEL OUTSIDE OF THE [place] IN LAST 30 DAYS: No - Related Data Allergies/Adverse Reactions: aspirin Adverse Reaction (Mild, Verified 05/25/19 23:38) Past Medical History - General Information source: Patient - Social History Smoking Status: Current Every Day Smoker Cigarette use (# per day): Yes Chew tobacco use (# tins/day): No Frequency of alcohol use: None Drug Abuse: None Family History: Reviewed & Not Pertinent Patient has suicidal ideation: No Patient has homicidal ideation: No - Past Medical History Cardiac Medical History: Reports: Hx Hypercholesterolemia Musculoskeletal Medical History: Reports Hx Arthritis - RIGHT KNEE Psychiatric Medical History: Reports: Hx Bipolar Disorder Past Surgical History: Reports: Hx Orthopedic Surgery - Immunizations Hx Diphtheria, Pertussis, Tetanus Vaccination: Yes Hx Pneumococcal Vaccination: 12/23/10 Review of Systems - Review of Systems Constitutional: No symptoms reported EENT: No symptoms reported Cardiovascular: No symptoms reported Respiratory: No symptoms reported Gastrointestinal: No symptoms reported Genitourinary: No symptoms reported Male Genitourinary: No symptoms reported Musculoskeletal: See HPI, Other - wrist pain Skin: See HPI, Change in color, Rash Hematologic/Lymphatic: No symptoms reported Neurological/Psychological: No symptoms reported -: Yes All other systems reviewed and negative Physical Exam - Vital signs Vitals: Temp Pulse Resp BP Pulse Ox 98.3 F 83 16 147/100 H 100 07/04/19 02:19 07/04/19 02:19 07/04/19 02:19 07/04/19 02:19 07/04/19 02:19 - Notes Notes: Physical Exam: General: Alert, appears well. HEENT: Normocephalic. Atraumatic. PERRL. Extraocular movements intact. Oropharynx clear. Neck: Supple. Non-tender. Respiratory: No respiratory distress. Clear and equal breath sounds bilaterally. Cardiovascular: Regular rate and rhythm. Abdominal: Normal Inspection. Non-tender. No distension. Normal Bowel Sounds. Back: No gross abnormalities. Extremities: Moves all four extremities. Upper extremities: Macular rash that is erythematous and blanching on the dorsal surface of the left forearm. Appearance is consistent with cellulitis. Normal ROM. Lower extremities: Normal inspection. No edema. Normal ROM. Neurological: Normal cognition. AAOx4. Normal speech. Psychological: Normal affect. Normal Mood. Skin: Warm. Dry. Normal color. Course - Re-evaluation Re-evalutation: 07/04/19 03:06 Diagnosis and treatment plan discussed with patient. All questions were answered prior to discharge. Emergency signs and symptoms, reasons to return to the emergency department discussed with patient. - Vital Signs Vital signs: Temp Pulse Resp BP Pulse Ox 98.3 F 82 20 139/84 H 99 07/04/19 03:51 07/04/19 03:51 07/04/19 03:51 07/04/19 03:51 07/04/19 03:51 Discharge - Discharge Clinical Impression: Left arm cellulitis Condition: Good Disposition: HOME, SELF-CARE Additional Instructions: Return to the Emergency Department without delay if any worse. HOME CARE INSTRUCTIONS & INFORMATION: Thank you for choosing us for your medical needs. We hope you're satisfied with the care you received. After you leave, you must properly care for your problem and, at the same time, observe its progress. Any condition can change. Some illnesses can change rapidly over hours or days. If your condition worsens, return to the Emergency Department or see your physician promptly. ABOUT YOUR X-RAYS AND EKG'S: If you had an EKG or X-rays taken, they have been read by the Emergency Physician. The X-rays and EKG's will also be read by a Radiologist or Asphalt Layer within 24 hours. If discrepancies are noted, you will be notified by telephone. Please be certain the ED has a correct telephone number & address where you can be reached. Also, realize that some fractures or abnormalities do not show up on initial X-rays. If your symptoms continue, see your physician. ABOUT YOUR LABORATORY TEST: If you had laboratory tests, the results have been reviewed by the Emergency Physician. Some test results (for example cultures) may not be available for several days. You will be contacted if any test result shows you need additional treatment. Please be certain the ED has a correct telephone number and address where you can be reached. ABOUT YOUR MEDICATIONS: You will receive instructions on how to take your medicine on the prescription label you receive. Additional information may be p rovided by the Pharmacy. If you have questions afterwards, call the ED for clarification or further instructions. Some prescribed medications may cause drowsiness. Do not perform tasks such as driving a car or operating machinery without consulting your Pharmacist. If you feel you need a refill of pain medication, your condition will need re-evaluation. Please do not call for a refill of any medication. ABOUT YOUR SIGNATURE: Signature of this document acknowledges to followin. Understanding that you received emergency treatment and that you may be released before al medical problems are known or treated. Please be certain the ED has a correct phone number & address where you can be reached. 2. Acknowledgement that you will arrange for follow-up care as recommended. 3. Authorization for the Emergency Physician to provide information to your follow-up Physician in order to maximize your care. AT ANY TIME, IF YOUR SYMPTOMS CHANGE SIGNIFICANTLY OR WORSEN OR YOU DEVELOP NEW SYMPTOMS, RETURN TO THE EMERGENCY DEPARTMENT IMMEDIATELY FOR RE-EVALUATION. OUR GOAL IS TO PROVIDE EXCELLENT MEDICAL CARE! WE HOPE THAT WE HAVE MET YOUR EXPECTATIONS DURING YOUR EMERGENCY DEPARTMENT VISIT AND THAT YOU FEEL YOU HAVE RECEIVED EXCELLENT CARE! Cellulitis You have an infection of your skin and underlying soft tissues called cellulitis. This is due to bacteria, which can enter through any break in the skin, or even through an irritated hair follicle. Untreated, cellulitis will usually worsen. Antibiotics are required. Usually, warm packs or warm soaks, and elevation of the infected area are recommended. You should start getting better within 24 to 36 hours. Most infections respond quickly to the right medication. Follow-up care is important, however, to check for abscess (boil) formation, unsuspected foreign body, or resistant infection. If you develop fever, chills, or if the area of infection is becoming rapidly more swollen or painful, call the doctor at once. Prescriptions: Clindamycin HCl [Cleocin 150 mg Capsule] 450 mg PO TID 7 Days #63 Referrals: GEGE MELISSA MD [HONORARY] - Follow up as needed I personally performed the services described in the documentation, reviewed and edited the documentation which was dictated to the scribe in my presence, and it accurately records my words and actions.
[2019-07-04 03:50] VITALS: BP 139/84
== END 2019-07-04 03:51 | disposition home or self-care (01) ==
LOC: ER 02:10
DX: L03.114 Cellulitis of left upper limb (principal); F17.210 Nicotine dependence, cigarettes, uncomplicated
CPT/HCPCS: 99283; A9270

== ENCOUNTER 2019-07-07 19:40 | Emergency (ER) | payer MEDICARE, MEDICAID ==
[2019-07-07 19:50] VITALS: BP 138/78
== END 2019-07-07 20:50 | disposition left against medical advice (07) ==
LOC: ER 19:40
DX: Z53.21 Procedure and treatment not carried out due to patient leaving prior to being seen by health care provider (principal)

== ENCOUNTER 2019-09-01 23:42 | Emergency (ER) | payer MEDICARE, MEDICAID ==
[2019-09-02] MEDS ORDERED: NAPROXEN 250 MG TABLET PO ONE (00:24)
[2019-09-02 00:26] VITALS: BP 148/91
--- NOTE | 2019-09-02 00:26 | ER Document Report ---
HPI - HPI Patient complains to provider of: Medication refill Time Seen by Provider: 09/02/19 00:16 Onset: Yesterday Onset/Duration: Persistent Quality of pain: Achy Pain Level: 5 Context: Patient presents reporting a history of torn meniscus to bilateral knees. Patient states he has chronic knee pain. Patient states that he just recently ran out of his prescription for naproxen. Patient came via EMS for refill of naproxen. Patient states that he does not have money to afford naproxen [id number] and it is cheaper if he receives a prescription. Patient denies any recent injury to the knees. Patient states pain is typical of his usual chronic knee pain. Patient otherwise denies any other complaints. Associated Symptoms: Other - Lateral knee pain Exacerbated by: Movement, Walking Relieved by: Denies Similar symptoms previously: Yes Recently seen / treated by doctor: No - ROS ROS below otherwise negative: Yes Systems Reviewed and Negative: Yes All other systems reviewed and negative - CONSTITUTIONAL Constitutional: DENIES: Fever, Chills - NEURO Neurology: DENIES: Weakness - REPRODUCTIVE Reproductive: DENIES: : - MUSCULOSKELETAL Musculoskeletal: REPORTS: Extremity pain. DENIES: Swelling - DERM Skin Color: Normal Skin Problems: None Past Medical History - General Information source: Patient - Social History Smoking Status: Current Every Day Smoker Frequency of alcohol use: None Drug Abuse: None Occupation: None Lives with: Family Family History: Reviewed & Not Pertinent Patient has homicidal ideation: No - Past Medical History Cardiac Medical History: Reports: Hx Hypercholesterolemia Denies: Hx Coronary Artery Disease, Hx Heart Attack, Hx Hypertension Pulmonary Medical History: Denies: Hx Asthma, Hx Bronchitis, Hx COPD, Hx Pneumonia Neurological Medical History: Denies: Hx Cerebrovascular Accident, Hx Seizures Renal/ Medical History: Denies: Hx Peritoneal Dialysis Musculoskeletal Medical History: Reports Hx Arthritis - RIGHT KNEE Psychiatric Medical History: Reports: Hx Bipolar Disorder Past Surgical History: Reports: Hx Orthopedic Surgery - Immunizations Hx Diphtheria, Pertussis, Tetanus Vaccination: Yes Hx Pneumococcal Vaccination: 12/23/10 Vertical Provider Document - CONSTITUTIONAL Agree With Documented VS: Yes Exam Limitations: No Limitations General Appearance: WD/WN, No Apparent Distress - INFECTION CONTROL TRAVEL OUTSIDE OF THE [place] IN LAST 30 DAYS: No - HEENT HEENT: Atraumatic, Normocephalic - NECK Neck: Normal Inspection, Supple - RESPIRATORY Respiratory: Breath Sounds Normal, No Respiratory Distress - CARDIOVASCULAR Cardiovascular: Regular Rate, Regular Rhythm - MUSCULOSKELETAL/EXTREMETIES Musculoskeletal/Extremeties: MAEW, FROM, Tender - Tenderness generalized to bilateral knees, no joint effusion, no laxity with varus or valgus maneuvers. Patellar tendon intact. Patient moves through full range of motion without gu arding. No calor overlying joint, No Edema. negative: Eccymosis - NEURO Level of Consciousness: Awake, Alert, Appropriate Motor/Sensory: No Motor Deficit, No Sensory Deficit - DERM Integumentary: Warm, Dry, No Rash Course - Re-evaluation Re-evalutation: 09/02/19 00:56 Patient advised that a [id number] prescription would be much cheaper than an ER visit. Patient encouraged to see his primary doctor for refills of his medication. Patient without any new injury, no concern for septic arthritis, fracture or dislocation. Will treat symptomatically and encourage outpatient follow-up with primary doctor or orthopedics. - Vital Signs Vital signs: Temp Pulse Resp BP Pulse Ox 98.7 F 09/02/19 00:13 Discharge - Discharge Clinical Impression: Medication refill Chronic knee pain Qualifiers: Laterality: bilateral Qualified Code(s): M25.561 - Pain in right knee Condition: Stable Disposition: HOME, SELF-CARE Instructions: Chronic Pain Control ([facility]) Additional Instructions: Return immediately for any new or worsening symptoms Followup with your primary care provider, call tomorrow to make a followup appointment Your primary doctor can give you refills of your medication, contact them tomorrow for refill Prescriptions: Naproxen [Naprosyn 250 Nmg Tablet] 1 tab PO BID #14 tablet Referrals: [facility] [Provider Group] - Follow up as needed [facility] [Provider Group] - Follow up as needed
== END 2019-09-02 00:33 | disposition home or self-care (01) ==
LOC: ER 23:42
DX: Z76.0 Encounter for issue of repeat prescription (principal); S83.206A Unspecified tear of unspecified meniscus, current injury, right knee, initial encounter; S83.207A Unspecified tear of unspecified meniscus, current injury, left knee, initial encounter; X58.XXXA Exposure to other specified factors, initial encounter; F17.200 Nicotine dependence, unspecified, uncomplicated
CPT/HCPCS: 99282; A9270

== ENCOUNTER 2019-09-21 22:40 | Emergency (ER) | payer MEDICARE, MEDICAID ==
[2019-09-21 23:30] VITALS: BP 135/81
--- NOTE | 2019-09-22 00:27 | ER Document Report ---
ED Medical Screen (RME) - General Chief Complaint: Numbness Stated Complaint: NUMBNESS Time Seen by Provider: 09/22/19 00:13 Primary Care Provider: ALIZA HENDRIX PA-C [Primary Care Provider] - Follow up as needed Mode of Arrival: Ambulatory Information source: Patient Notes: Patient is a 43-year-old male presenting to the emergency department with concern for nerve damage to his legs. Patient reports he has been having numbness and tingling in both of his legs for a year. He states he has seen neurology and orthopedics and they have not helped him. Patient comes to the emergency department tonight stating that he wants answers and he would like us to draw blood work to find out what is going on and what is causing his leg issues. Patient denies any new symptoms, states all the symptoms have been ongoing. Patient has no obvious leg swelling, he is ambulating with a steady gait on a cane. I have greeted and performed a rapid initial assessment of this patient. A comprehensive ED assessment and evaluation of the patient, analysis of test results and completion of the medical decision making process will be conducted by additional ED providers. I have specifically instructed the patient or family members with the patient to immediately return to any nursing staff should anything change in the patient's condition or with their chief complaint. TRAVEL OUTSIDE OF THE [place] IN LAST 30 DAYS: No - Related Data Allergies/Adverse Reactions: aspirin Adverse Reaction (Mild, Verified 09/02/19 00:13) Home Medications: zyprexa, prozactine, trazadone,lorazapam, chol med Past Medical History - Past Medical History Cardiac Medical History: Reports: Hx Hypercholesterolemia Denies: Hx Coronary Artery Disease, Hx Heart Attack, Hx Hypertension Pulmonary Medical History: Denies: Hx Asthma, Hx Bronchitis, Hx COPD, Hx Pneumonia Neurological Medical History: Denies: Hx Cerebrovascular Accident, Hx Seizures Renal/ Medical History: Denies: Hx Peritoneal Dialysis Musculoskeltal Medical History: Reports Hx Arthritis - RIGHT KNEE Psychiatric Medical History: Reports: Hx Bipolar Disorder Past Surgical History: Reports: Hx Orthopedic Surgery - Immunizations Hx Diphtheria, Pertussis, Tetanus Vaccination: Yes Physical Exam - Vital signs Vitals: Temp Pulse Resp BP Pulse Ox 98.6 F 123 H 18 135/81 H 95 09/21/19 23:29 09/21/19 23:29 09/21/19 23:29 09/21/19 23:29 09/21/19 23:29 Course - Vital Signs Vital signs: Temp Pulse Resp BP Pulse Ox 98.6 F 123 H 18 135/81 H 95 09/21/19 23:29 09/21/19 23:29 09/21/19 23:29 09/21/19 23:29 09/21/19 23:29 Doctor's Discharge - Discharge Referrals: ALIZA HENDRIX PA-C [Primary Care Provider] - Follow up as needed
== END 2019-09-22 00:20 | disposition left against medical advice (07) ==
LOC: ER 22:40
DX: R20.0 Anesthesia of skin (principal); R20.2 Paresthesia of skin; M79.606 Pain in leg, unspecified; G89.29 Other chronic pain; E78.00 Pure hypercholesterolemia, unspecified; F31.9 Bipolar disorder, unspecified; Z79.899 Other long term (current) drug therapy; Z53.29 Procedure and treatment not carried out because of patient's decision for other reasons
CPT/HCPCS: 99281

== ENCOUNTER 2019-12-24 17:13 | Emergency (ER) | payer MEDICARE, MEDICAID ==
[2019-12-24] MEDS ORDERED: NICOTINE 21 MG/24 HR PATCH.TD24 TD ONE (17:34)
--- NOTE | 2019-12-24 17:36 | ER Document Report ---
ED Psych Disorder / Suicide <DOROTHYSIOMARA PENALOZA - Last Filed: 12/24/19 18:35> - General Mode of Arrival: Ambulatory Information source: Patient TRAVEL OUTSIDE OF THE [place] IN LAST 30 DAYS: No <SINAN KELLEY - Last Filed: 12/24/19 19:00> - General Chief Complaint: Suicidal Ideation Stated Complaint: POSSIBLE SUICIDAL IDEATION Time Seen by Provider: 12/24/19 17:17 Primary Care Provider: [facility] [Outside] - Follow up as needed [facility] [Outside] - Follow up as needed [facility] [Outside] - Follow up as needed ALIZA HENDRIX PA-C [Primary Care Provider] - Follow up as needed Notes: 43-year-old male patient with history of bipolar presents the emergency d epartment requesting placement. Patient reports he had an argument with his landlord and he came here because he has nowhere else to go. Patient reports that he is suicidal and will hurt himself if we do not keep him here until he has a place to stay. Patient reports that he has a "worker" from [employer] and he states that it is illegal for us to discharge him until the [employer] worker has found him a suitable place to stay. Patient reports he is compliant with his medications for bipolar. He states he has never tried to hurt himself before. He states that when he says he is going to hurt himself he is "just saying it". He denies any homicidal ideations but does state that he is very a ngry with his landlord and that of his landlord was to come into his home he would not trust himself to not hurt him. Patient is stating that he needs a place to stay, he needs lorazepam and he needs pain medication for his chronic knee pain. (SINAN KELLEY) - Related Data Allergies/Adverse Reactions: aspirin Adverse Reaction (Mild, Verified 09/02/19 00:13) Past Medical History - General Information source: Patient - Social History Smoking Status: Current Some Day Smoker Frequency of alcohol use: None Drug Abuse: None Family History: Reviewed & Not Pertinent - Past Medical History Cardiac Medical History: Reports: Hx Hypercholesterolemia Denies: Hx Coronary Artery Disease, Hx Heart Attack, Hx Hypertension Pulmonary Medical History: Denies: Hx Asthma, Hx Bronchitis, Hx COPD, Hx Pneumonia Neurological Medical History: Denies: Hx Cerebrovascular Accident, Hx Seizures Renal/ Medical History: Denies: Hx Peritoneal Dialysis Musculoskeletal Medical History: Reports Hx Arthritis - RIGHT KNEE Psychiatric Medical History: Reports: Hx Bipolar Disorder Past Surgical History: Reports: Hx Orthopedic Surgery - Immunizations Hx Diphtheria, Pertussis, Tetanus Vaccination: Yes Hx Pneumococcal Vaccination: 12/23/10 <SINAN KELLEY - Last Filed: 12/24/19 19:00> Review of Systems - Review of Systems Constitutional: No symptoms reported EENT: No symptoms reported Cardiovascular: No symptoms reported Respiratory: No symptoms reported Gastrointestinal: No symptoms reported Genitourinary: No symptoms reported Male Genitourinary: No symptoms reported Musculoskeletal: No symptoms reported Skin: No symptoms reported Hematologic/Lymphatic: No symptoms reported Neurological/Psychological: Suicidal ideation - no plan <SINAN KELLEY - Last Filed: 12/24/19 19:00> Physical Exam <SINAN KELLEY - Last Filed: 12/24/19 19:00> - Vital signs Vitals: Temp 99.4 F 12/24/19 17:13 - Notes Notes: PHYSICAL EXAMINATION: GENERAL: Well-appearing, well-nourished and in no acute distress. HEAD: Atraumatic, normocephalic. EYES: Pupils equal round and reactive to light, extraocular movements intact, sclera anicteric, conjunctiva are normal. ENT: Nares patent, oropharynx clear without exudates. Moist mucous membranes. NECK: Normal range of motion, supple without lymphadenopathy LUNGS: Breath sounds clear to auscultation bilaterally and equal. No wheezes rales or rhonchi. HEART: Regular rate and rhythm without murmurs ABDOMEN: Soft, nontender, nondistended abdomen. No guarding, no rebound. No masses appreciated. Musculoskeletal: Normal range of motion, no pitting or edema. No cyanosis. NEUROLOGICAL: Cranial nerves grossly intact. Normal speech, normal gait. Normal sensory, motor exams PSYCH: Slightly anxious. SKIN: Warm, Dry, normal turgor, no rashes or lesions noted. (SINAN KELLEY) Course - Laboratory Result Diagrams: 12/24/19 17:53 12/24/19 17:53 <SIOMARA NAGY - Last Filed: 12/24/19 18:35> - Laboratory Result Diagrams: 12/24/19 17:53 12/24/19 17:53 - EKG Interpretation by Me EKG shows normal: Sinus rhythm Rate: Normal - Rate 98, normal intervals, normal axis, QTC 460. No ST segment elevations or depressions to suggest ischemia. <SINAN KELLEY - Last Filed: 12/24/19 19:00> - Re-evaluation Re-evalutation: 12/24/19 18:50 Mental health has seen and evaluated the patient. He does not meet IVC criteria. We have arranged through the nursing supervisor reinforced steel placing to get him a taxi ride home. Patient is in agreement with this plan. Encouraged patient to refrain from interacting with his landlord if this is part of his problems. He has web sizer from [employer] will be working with him over the next few days to evaluate his living situation. (SINAN KELLEY) - Vital Signs Vital signs: Temp Pulse Resp BP Pulse Ox 99.4 F 103 H 15 147/93 H 96 12/24/19 17:17 12/24/19 17:17 12/24/19 17:17 12/24/19 17:17 12/24/19 17:17 - Laboratory Laboratory results interpreted by me: 12/24/19 17:53 Glucose 125 H Salicylates < 1.0 L Acetaminophen < 10 L Discharge <SIOMARA NAGY - Last Filed: 12/24/19 18:35> <SINAN KELLEY - Last Filed: 12/24/19 19:00> - Discharge Clinical Impression: Eviction notice served, Suicidal ideation Condition: Stable Disposition: HOME, SELF-CARE Additional Instructions: You have been evaluated by both medical and behavioral health teams for psychosocial stress related to 10 day eviction and passive suicidal ideation. You have been deemed appropriate for discharge. While in the emergency department you received the following services: Medical screening and assessment, nursing services, dietary services, pharmacological services, one-on-one counseling and/or psychotherapy, environmental services, and continuous observation by a patient director safety council. You are recommended to continue your home medications and take them as prescribed. DEPRESSION: (situational) Your evaluation reveals that you have mental depression. While symptoms may be vague, they often include disturbance of sleep, fatigue, loss of appetite, and general loss of interest in life. While depression may be a side effect of drugs, or a reaction to a major change in your life, many cases have no known cause. If depression is acute, and related to a major loss in your life, you can expect it to clear completely with time. If you have been depressed a long time, are prone to repeated bouts of depression or low mood, or have been thinking of suicide, get help. Depression can be treated with anti-depressant medication and counselling. Long-term depression will often take a few weeks to clear, even with appropriate medication. Follow-up care is important. SUICIDAL IDEATION: (passive, no plan or intent, no past attempts) Suicidal ideation is a common medical term for thoughts about suicide, which may be as detailed as a formulated plan, without the suicidal act itself. Although most people who undergo suicidal ideation do not commit suicide, some go on to make suicide attempts. The range of suicidal ideation varies greatly from fleeting to detailed planning, role playing, and unsuccessful attempts. While thoughts about suicide are common, most people do not carry out serious actions to commit suicide. Based upon your evaluation and discussion with you, we do not believe you are currently at risk to act upon your thoughts of suicide. You have agreed to return to the Emergency Department, at any time, if you feel inclined to act upon your suicidal thoughts. FOLLOW-UP CARE: You are recommended to continue your home medications, follow up with medication provider at [facility] ([facility]), continue living at mobile home and then residing with mother while your [employer] case workers seek other joint terminal attack controller living. You have been provided both local mobile crisis numbers. If you experience worsening or a significant change in your symptoms notify your physician immediately, utilize mobile crisis or return to the Emergency Department at any time for re-evaluation. Referrals: ALIZA HENDRIX PA-C [Primary Care Provider] - Follow up as needed [facility] [Outside] - Follow up as needed [facility] [Outside] - Follow up as needed [facility] [Outside] - Follow up as needed
[2019-12-24 17:53] VITALS: BP 147/93
[2019-12-24 18:15] LABS: ABSOLUTE BASOPHILS # (AUTO) 0.1 10^3/uL (0.0-0.2); ABSOLUTE EOSINOPHILS # (AUTO) 0.3 10^3/uL (0.0-0.6); ABSOLUTE LYMPHOCYTES (AUTO) 1.5 10^3/uL (0.5-4.7); ABSOLUTE MONOCYTES (AUTO) 0.6 10^3/uL (0.1-1.4); ABSOLUTE NEUT (AUTO) 5.7 10^3/uL (1.7-8.2); BASOPHILS % (AUTO) 1.5 % (0-2); HEMATOCRIT 45.2 % (37.9-51.0); LYMPHOCYTES % (AUTO) 18.2 % (13-45); MEAN CORPUSCULAR HEMOGLOBIN 31.8 pg (27.0-33.4); MEAN CORPUSCULAR HGB CONC 35.4 g/dL (32.0-36.0); MEAN CORPUSCULAR VOLUME 90 fl (80-97); MONOCYTES % (AUTO) 6.9 % (3-13); PLATELET COUNT 298 10^3/uL (150-450); RED BLOOD COUNT 5.05 10^6/uL (4.35-5.55); RED CELL DISTRIBUTION WIDTH 13.4 % (11.5-14.0); SEGMENTED NEUTROPHILS % (AUTO) 69.4 % (42-78); TOTAL CELLS COUNTED % (AUTO) 100 %; WHITE BLOOD COUNT 8.3 10^3/uL (4.0-10.5)
[2019-12-24 18:35] LABS: ALBUMIN 4.6 g/dL (3.5-5.0); ALKALINE PHOSPHATASE 82 U/L (38-126); ANION GAP 11 (5-19); ASPARTATE AMINO TRANSFERASE 22 U/L (17-59); BILIRUBIN,DIRECT 0.3 mg/dL (0.0-0.4); BILIRUBIN,TOTAL 0.6 mg/dL (0.2-1.3); BLOOD UREA NITROGEN 10 mg/dL (7-20); CALCIUM 9.7 mg/dL (8.4-10.2); CARBON DIOXIDE 25 mmol/L (22-30); CHLORIDE 106 mmol/L (98-107); GLUCOSE 125 mg/dL (75-110); POTASSIUM 3.9 mmol/L (3.6-5.0)
[2019-12-24 18:37] LABS: ACETAMINOPHEN < 10 ug/mL (10-30); ALCOHOL < 10 mg/dL (NONE DETECTED); SALICYLATE < 1.0 mg/dL (2.0-20.0)
[2019-12-24 18:38] LABS: APPEARANCE,URINE CLEAR; BILIRUBIN,URINE NEGATIVE (NEGATIVE); COLOR,URINE YELLOW; GLUCOSE, URINE NEGATIVE (NEGATIVE); KETONES,URINE NEGATIVE (NEGATIVE); LEUKOCYTE ESTERASE,URINE NEGATIVE (NEGATIVE); NITRITE,URINE NEGATIVE (NEGATIVE); PROTEIN,URINE NEGATIVE (NEGATIVE); URINE SPECIFIC GRAVITY 1.011; UROBILINOGEN,URINE NEGATIVE mg/dL (<2.0)
[2019-12-24 18:56] LABS: URINE AMPHETAMINES SCREEN NEGATIVE; URINE BARBITURATES SCREEN NEGATIVE; URINE BENZODIAZEPINES SCREEN NEGATIVE; URINE COCAINE SCREEN NEGATIVE; URINE MARIJUANA (THC) SCREEN NEGATIVE; URINE METHADONE SCREEN NEGATIVE; URINE PHENCYCLIDINE SCREEN NEGATIVE
--- NOTE | 2019-12-24 20:56 | EKG REPORT ---
SEVERITY:- BORDERLINE ECG - SINUS RHYTHM NONSPECIFIC INTRAVENTRICULAR CONDUCTION DELAY : Confirmed by: Rafael Bush MD 24-Dec-2019 20:55:50
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
== END 2019-12-24 18:57 | disposition home or self-care (01) ==
LOC: ER 17:13
DX: R45.851 Suicidal ideations (principal); R45.4 Irritability and anger; F31.9 Bipolar disorder, unspecified; Z79.899 Other long term (current) drug therapy; Z59.8 Other problems related to housing and economic circumstances; Z59.2 Discord with neighbors, lodgers and landlord; F17.200 Nicotine dependence, unspecified, uncomplicated
CPT/HCPCS: 36415; 80053; 80307; 81001; 85025; 93005; 93010; 99284